=== PATIENT | female | born 1935 | race Caucasian/White ===

== ENCOUNTER 2019-02-05 23:23 | Inpatient (IN) | payer MEDICARE, BC ==
--- NOTE | 2019-02-06 | ED ---
Dizziness - HPI Summary HPI Summary: 83-year-old female presents with multiple falls today. She states that she is very dizzy starting this afternoon. She does not remember falling but fell at least 3 times today based on how her house looked. She only remembers hitting her life alert twice. ems came and brought patient to ER but patient was not cooperating well with ems per family as she was having difficulty following commands. She denies any pain currently. No chest pain or shortness of breath. Denies any headache. only admits to dizziness. States that she has history of vertigo. no abdomen. No nausea vomiting. No diarrhea. dizziness worse with head movements. denies any pre-syncope feeling. 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 ems stated that she seem to be grasping at things. she wears oxygen at home at night. when family arrived discussed that when they talked as usually to her via phone she states didn't feel well at 2:30pm. they state she is not acting like her self and she is moving around a lot more than usually. she lives alone and uses a walker to get around. - History Of Current Complaint Chief Complaint: EDFall Stated Complaint: "FALL" PER EMS Time Seen by Provider: 02/05/19 23:46 - Allergies/Home Medications Allergies/Adverse Reactions: Allergies Allergy/AdvReac Type Severity Reaction Status Date / Time ibuprofen Allergy Unknown Verified 02/05/19 23:40 Reaction Details Penicillins Allergy Unknown Verified 02/05/19 23:40 Reaction Details procaine [From Novocain] Allergy Unknown Verified 02/05/19 23:40 Reaction Details Home Medications: Home Medications Ferrous Sulfate TAB* 325 mg PO DAILY 02/06/19 [History Confirmed 02/06/19] Ipratropium 0.5MG/2.5ML NEB* [Atrovent 0.5 MG NEB.MICHAEL*] 0.5 mg INH Q6H PRN 02/06 [History Confirmed 02/06/19] Warfarin Sodium 1 tab PO EVERY OTHER DAY 02/06/19 [History Confirmed 02/06/19] Warfarin Sodium 2.5 mg PO EVERY OTHER DAY 02/06/19 [History Confirmed 02/06/19] raNITIdine HCl [Ranitidine HCl] 150 mg PO BEDTIME 02/06/19 [History Confirmed ] PMH/Surg Hx/FS Hx/Imm Hx Endocrine/Hematology History: Reports: Hx Anticoagulant Therapy Denies: Hx Diabetes Cardiovascular History: Reports: Hx Hypercholesterolemia Denies: Hx Hypertension Respiratory History: Denies: Hx Lung Cancer GI History: Reports: Hx Diverticulosis, Hx Gastroesophageal Reflux Disease, Other GI Disorders - Hx GERD History: Denies: Hx Renal Disease Musculoskeletal History: Reports: Hx Arthritis, Hx Back Problems Sensory History: Reports: Hx Contacts or Glasses - GLASSES Opthamlomology History: Reports: Hx Contacts or Glasses - GLASSES Psychiatric History: Reports: Hx Anxiety, Hx Depression - Surgical History Surgery Procedure, Year, and Place: HYSTERECTOMY 2006. TONSILECTOMY A CHILD Hx Anesthesia Reactions: No - Immunization History Date of Tetanus Vaccine: Unk Date of Influenza Vaccine: Fall 2013 Infectious Disease History: No Infectious Disease History: Denies: Traveled Outside the [place] in Last 30 Days - Social History Alcohol Use: None Substance Use Type: Reports: None Smoking Status (MU): Former Smoker Type: Cigarettes Review of Systems Negative: Fever Negative: Chest Pain Negative: Shortness Of Breath Neurological: Other - dizziness All Other Systems Reviewed And Are Negative: Yes Physical Exam Triage Information Reviewed: Yes Vital Signs On Initial Exam: Initial Vitals Temp Pulse Resp BP Pulse Ox 100.0 F 99 18 155/98 94 02/05/19 23:37 02/05/19 23:37 02/05/19 23:37 02/05/19 23:37 02/05/19 23:37 Vital Signs Reviewed: Yes Appearance: Positive: Well-Appearing Skin: Positive: Warm, Dry Head/Face: Positive: Normal Head/Face Inspection Eyes: Positive: Normal, EOMI, MERNA, Conjunctiva Clear ENT: Positive: Normal ENT inspection, Pharynx normal, TMs normal Respiratory/Lung Sounds: Positive: Clear to Auscultation, Breath Sounds Present Cardiovascular: Positive: Normal, RRR Abdomen Description: Positive: Nontender, Soft Bowel Sounds: Positive: Present Musculoskeletal: Positive: Strength/ROM Intact - arms and legs Neurological: Positive: Sensory/Motor Intact, Alert, Oriented to Person Place, Time, CN Intact II-III Psychiatric: Positive: Normal - [place] Coma Scale Best Eye Response: 4 - Spontaneous Best Motor Response: 6 - Obeys Commands Best Verbal Response: 5 - Oriented Coma Scale Total: 15 Diagnostics - Vital Signs Vital Signs Temp Pulse Resp BP Pulse Ox 05/17/19 23:37 100.0 F 99 18 155/98 94 - Laboratory Result Diagrams: 02/06/19 00:43 02/06/19 00:43 Lab Statement: Any lab studies that have been ordered have been reviewed, and results considered in the medical decision making process. - Radiology chest Radiology Interpretation Completed By: ED Physician Summary of Radiographic Findings: possible lingual pneumonia - CT brain CT Interpretation Completed By: Radiologist Summary of CT Findings: IMPRESSION: Limited examination due to motion and streak artifact. No large intracranial hemorrhage or large vessel territorial infarct. - EKG No standard instances Cardiac Rate: NL EKG Rhythm: Sinus Rhythm EKG Comparison: No Significant Change Summary of EKG Findings: sinus rhythm Re-Evaluation - Re-Evaluation First Eval Re-Evaluation Time: 01:04 Comment: family now present and last normal was 2:30pm. family states is not normal for here to move so much and see seems to be grabing at things. has history of vertigo. Second Eval Re-Evaluation Time: 01:28 Comment: no chest pain still, troponin 2.0. only complianing of dizziness. Third Eval Re-Evaluation Time: 01:55 Comment: attempted to use the commode and required two people to assist her as unable to ambulate on her own which is unlike her Dizzy Course/Dx - Course Course Of Treatment: 83-year-old female presents with multiple falls today. She states that she is very dizzy starting this afternoon. She does not remember falling. She only remembers hitting her life alert twice. denies any pain currently. No chest pain or shortness of breath. Denies any headache. States that she has history of vertigo and feels the same. on exam has normal neuro exam just has to be reorientated frequently and is slow to do tasks on intially exam. is moving all extremities and continues to move head side to side. lungs CTA. heart RRR. abd soft nontender. 13.8 wbc. lactic elevated at 2.5. CT brain normal. discussed with dr alegria about troponin (2.0) and he said to give aspirin and ekg looks similiar to last time. chest xray possible pneumonia as read by dr alegria and urine possible uti as has +1 bacteria so will cover with rocephin. discussed with dr ibarra who agrees to admit. - Diagnoses Differential Diagnosis/HQI/PQRI: Coronary Artery Disease, Metabolic Abnormality , Myocardial Infarction Provider Diagnoses: Dizziness, Altered mental status, Elevated troponin, Frequent falls Discharge - Sign-Out/Discharge Documenting (check all that apply): Patient Departure - Discharge Plan Condition: Stable Disposition: ADMITTED TO [facility] Referrals: Tavares Duffy DO [Primary Care Provider] - - Billing Disposition and Condition Condition: STABLE Disposition: Admitted to [facility]
[2019-02-06] MEDS ORDERED: NS 0.9% 1000 ML** 1,000 ML IV ONE (00:49)
[2019-02-06] MEDS ORDERED: Meclizine TAB* 12.5 MG PO ONE (00:49)
[2019-02-06 01:04] LABS: ABS Basophils 0.1 10^3/ul (0-0.2); ABS Monocytes 0.3 10^3/ul (0-0.8); ABS Neutrophils 12.3 10^3/ul (1.5-7.7); Eosinophil % 0.1 %; Hematocrit 45 % (35-47); Hemoglobin 14.6 g/dL (12.0-16.0); Lymphocyte % 6.9 %; Mean Corpuscular HGB Conc 33 g/dL (31-36); Mean Corpuscular Hemoglobin 28 pg (27-31); Mean Corpuscular Volume 86 fL (80-97); Mean Platelet Volume 9.2 fL (7.4-10.4); Platelet Count 223 10^3/uL (150-450); Red Blood Count 5.17 10^6 /uL (3.70-4.87); Red Cell Distribution Width 14 % (10.5-15); White Blood Count 13.8 10^3/uL (3.5-10.8)
[2019-02-06 01:24] LABS: ALT 17 U/L (7-52); AST 25 U/L (13-39); Albumin 4.2 g/dL (3.2-5.2); Albumin/Globulin Ratio 1.4 (1-3); Alkaline Phosphatase 93 U/L (34-104); Anion Gap 8 mmol/L (2-11); BUN/Creatinine Ratio 17.2 (8-20); Blood Urea Nitrogen 17 mg/dL (6-24); C Reactive Protein 15.03 mg/L (<8.01); CO2 Carbon Dioxide 28 mmol/L (22-32); Calcium 9.3 mg/dL (8.6-10.3); Chloride 99 mmol/L (101-111); EGFR African American 64.8 (>60); EGFR Non-African American 53.6 (>60); Glucose 161 mg/dL (70-100); Magnesium 1.9 mg/dL (1.9-2.7); Potassium 4.5 mmol/L (3.5-5.0); Sodium 135 mmol/L (135-145); Total Protein 7.2 g/dL (6.4-8.9)
[2019-02-06 01:34] LABS: INR 1.88 (0.82-1.09)
[2019-02-06 01:57] LABS: TSH (Thyroid Stimulating Horm) 1.34 mcIU/mL (0.34-5.60)
[2019-02-06] MEDS ORDERED: Aspirin EC TAB* 325 MG PO ONE (02:05)
[2019-02-06 02:15] LABS: Urine Appearance Clear; Urine Bacteria 1+ (Absent); Urine Bilirubin Negative (Negative); Urine Blood 2+ (Negative); Urine Color Straw; Urine Glucose 3+(>=500 mg/dL) (Negative); Urine Ketones Trace (Negative); Urine Nitrite Negative (Negative); Urine Protein Negative (Negative); Urine Red Blood Cell 2+(6-10/hpf) (Absent); Urine Urobilinogen Negative (Negative); Urine White Blood Cell Trace(0-5/hpf) (Absent)
[2019-02-06] MEDS ORDERED: cefTRIAXone(*) 1 GM in NS 0.9% 50 ML* 50 ML IVPB ONE (02:25)
[2019-02-06 02:49] LABS: Creatine Kinase 441 U/L (10-223)
[2019-02-06] MEDS ORDERED: Magnesium Hydroxide LIQ* 30 ML UDC PO PRN (03:43)
[2019-02-06] MEDS ORDERED: Al Hydrox/Mg Hydrox/Simet LIQ* 30 ML UDC PO PRN (03:43)
[2019-02-06] MEDS ORDERED: Acetaminophen TAB* 325 MG PO PRN (03:43)
[2019-02-06] MEDS ORDERED: Ipratropium 0.5MG/2.5ML NEB* 0.5 MG/2.5 ML NEB.SOLN INH PRN (03:46)
[2019-02-06] MEDS ORDERED: NS 0.9% IV ONE (04:00)
[2019-02-06 04:50] LABS: INR 1.79 (0.82-1.09)
[2019-02-06] MEDS: NS 0.9% 1000 ML** 1,000 ML IV SCH (05:07)
[2019-02-06 05:19] LABS: Troponin I 5.04 ng/mL (<0.04)
[2019-02-06 06:18] LABS: Troponin I 3.79 ng/mL (<0.04)
--- NOTE | 2019-02-06 07:58 | HP ---
CC: Dr. Tavares Duffy * HISTORY AND PHYSICAL: DATE OF ADMISSION: 02/06/19 PRIMARY CARE PROVIDER: Dr. Tavares Duffy. CHIEF COMPLAINT: Status post fall with abnormal behavior. HISTORY OF PRESENT ILLNESS: Yue Nixon is an 83-year-old female who lives independently in her own house. She drives only in the [place] now. Her family lives nearby and helps her out. The patient basically ambulates with a roller walker and every Friday, she goes with her family out to dinner. She called her son, Anish, today and told him that she was not feeling like going to dinner due to feeling unwell. The patient herself stated that she felt somewhat dizzy and weak. Subsequently, her personal alert button was pushed and the patient's family was notified that emergency response was activated. The patient's son stated that was first in the patient's apartment. Apparently, the apartment was in disarray. The family thinks that the patent was found on the floor. There were things scattered all over the kitchen and the living room. The patient herself stated that she is not really sure why and how she fell. She complains of no pain right now. She does have an abrasion and swelling of the right forehead. Although the patient is alert and oriented x3, there is some delay in her responses sometimes during my evaluation. The patient also continues to have a head turning motion from one side to the other during the evaluation, which continues to be there even when the patient is lying on her side and appears to be asleep when I entered the room. The patient's troponin was noted to be 2 at admission, but the patient denies any chest pain or shortness of breath. She does use oxygen at night ever since her pulmonary emboli were diagnosed in 2013. The patient is going to be admitted with diagnosis of status post fall and altered mental status. PAST MEDICAL HISTORY: 1. History of DVT and PE diagnosed in 2013. Ever since then, the patient has had nocturnal hypoxemia and needed oxygen at night. 2. Gastroesophageal reflux disease. 3. Depression. 4. Osteoporosis. 5. Dyslipidemia. 6. Overactive bladder. 7. History of chronic back pain. 8. Status post hysterectomy in the past. 9. Cardiac catheterization in 2013 showed basically normal coronaries. ALLERGIES: Include IBUPROFEN, PENICILLIN, and NOVOCAINE. The details of the patient's allergy reaction the patient cannot describe at this point. MEDICATIONS: At home include: 1. Ferrous sulfate 325 mg daily. 2. Atrovent nebulizer on a p.r.n. basis. 3. Ranitidine 150 mg at bedtime. 4. Coumadin 5 mg alternating with 2.5 mg every other day. 5. Fluoxetine 20 mg daily. 6. Boniva once monthly. 7. Ditropan 5 mg daily. 8. Prevacid SoluTab 30 mg daily. FAMILY HISTORY: Positive for heart disease in mother and father. SOCIAL HISTORY: The patient has a history of smoking and she quit over 25 years ago. She has a history of 80 pack-year smoking. She denies any alcohol or drug use. She lives by herself and her surrogate decision maker is her son, Zak. She is a full code. REVIEW OF SYSTEMS: Please note that although the patient responds to questions appropriately, she is somewhat altered and continues to have repetitive head movements from left to right. She denies any pain. She stated that she does not remember what happened when she fell. She denies any focal weakness. She denies any chest pain or shortness of breath. When asked what made her call her family and state that she was feeling unwell, she stated that she felt a little dizzy. All the remaining 12 systems were reviewed with the patient and are somewhat limited, but are negative as mentioned above. PHYSICAL EXAMINATION GENERAL: The patient is a pleasant 83-year-old female who is in no acute distress. The patient continues to move her head from left to right when talking with me, but otherwise she is alert and oriented x3. Sometimes it appears that her response is slightly delayed. VITAL SIGNS: Blood pressure 125/61, heart rate of 82 and regular, respiratory rate 27, oxygen saturation 97% on room air, temperature of 100.0. HEENT: Head: With an abrasion and swelling of the right forehead. No other abnormalities noted. Eyes: Pupils are equal and reactive to light and accommodation. Oropharynx clear. Mucosa moist. NECK: Supple. No JVD. No bruits bilaterally. RESPIRATORY: Clear to auscultation bilaterally. CARDIOVASCULAR: Regular rate and rhythm, no murmur. ABDOMEN: Soft and nontender. Bowel sounds present in all 4 quadrants. There is no CVA tenderness on palpation of the back. EXTREMITIES: There is no edema. Pulses are +2 bilaterally. No clubbing or cyanosis. NEUROLOGIC: On neuro evaluation, speech is clear. Cranial nerves II through XII grossly intact. Motor strength is 5/5 bilaterally. PSYCHIATRIC: On psychiatric evaluation, the patient is oriented x3. Occasionally has some delay in answers. She continues to move her head from left to right. She is not aware of doing it, but it does not appear to bother her at all. SKIN: On evaluation of the skin, apart from a small abrasion with ecchymosis on her right forehead, no other abnormalities noted. DIAGNOSTIC STUDIES/LAB DATA: Laboratory data showed white blood cell count of 13.8, hemoglobin of 14.6, hematocrit of 45, and platelets of 223. INR was subtherapeutic at 1.88. Sodium was 135, potassium 3.5, chloride 99, carbon dioxide 28, BUN 17, creatinine 0.99. Liver function tests were unremarkable. C-reactive protein of 15. Brain natriuretic peptide was 182. TSH was 1.34. Troponin of 2. Total CPK was 441, lactic acid was 2.5. The patient's chest x-ray reviewed by myself shows no clear-cut pneumonia or abnormality in cardiac silhouette. The patient's EKG showed left anterior hemiblock with ST depressions in leads V2 and V3. Comparing with an EKG from 2014, the patient had negative T waves in V2 and V3, which currently it had normalized. Yuniel CT impression: "Limited examination due to motion artifact. No large intracranial hemorrhage or large-vessel territorial infarcts." ASSESSMENT AND PLAN: An 83-year-old female who is on Coumadin for history of pulmonary embolism has fallen and hit her head, now keeps on repetitively moving her head from left to right, has somewhat delayed responses, although she is oriented x3. The patient does not really remember what happened. She has mild leukocytosis and elevated lactic acid level as well as troponin and CPK. At this point, the differential in regards to her altered mentation is: 1. Concussion. It could also be related to a partial seizure, although less likely. Due to the patient's leukocytosis and low-grade fever, it is possible that she has an ongoing infection. At this point, I recommended for the patient to undergo an MRI and lumbar puncture. The patient refused an MRI and she refused a lumbar puncture. As per discussion with the patient's son present in the room, the patient is very claustrophobic and she refuses to have the "needles in her spine." At this point, the patient is going to be placed on telemetry monitored bed with neuro checks every 2 hours. I will continue her Coumadin tonight, but for the time being, I will not bridge her to make her INR therapeutic due to the fact that this patient had significantly fallen and hit her head and we will continue to watch with neuro checks for possibility of an occult blood that was not diagnosed on the CT of the brain. I will have low threshold to have a repeat CT of the brain obtained if her mentation or neurologic exam changes. I will also obtain an EEG and ask neurology to consult the patient. 2. In regards to the patent's elevated troponin, the patient is asymptomatic from a cardiac standpoint. Her EKG is slightly changed, but her last EKG was 5 years ago. Her cardiac catheterization in 2013 demonstrated no significant coronary artery disease. At this point, due to her neurologic status, I will not add on aspirin at this point. I will continue telemetry monitored bed and we will obtain transthoracic echocardiogram. Once again, the patient complains of low chest pain. Aspirin is not going to be added for fear of occult bleeds, for which we are watching with neuro checks. 3. In regards to the patient's sepsis, the patient is septic at admission with elevated lactic acid and the followup lactic acid is going to be obtained at 6: 00 a.m. At this point, the patient will receive 1000 mL of intravenous fluids in the emergency department and I am going to add on another 1800 mL of IV fluids to complete the patient's bolus for sepsis. The patient is going to be treated empirically with ceftriaxone and the source of infection is likely urine since the patient's urinalysis is abnormal. A central nervous system infection is also a possibility, although the patient has no meningeal signs at this point and I do not believe covering her fully for meningitis is needed. 4. The patient has history of pulmonary embolism or DVT. The patient is currently on 2 L of oxygen. She is not dyspneic and she has not been complaining of shortness of breath. Her INR is slightly subtherapeutic at 1.8 and I am not going to bridge the patient due to her significant head trauma. 5. The patient's code status is full. Her surrogate decision maker is her son. 6. For her DVT prophylaxis, the patient is going to be continued on her Coumadin with daily INRs. SCDs are going to be also started. TIME SPENT: Approximately 75 minutes were spent on admission of this patient; more than half that time was spent [id number] with the patient during the interview and physical exam. [id number]/[facility] #: [id number] MTDD
--- NOTE | 2019-02-06 09:45 | PN ---
Sepsis Event Evaluation Date of Evaluation: 02/06/19 Time of Evaluation: 09:15 Current Stage of Sepsis: Sepsis Vital Signs - Last 12 Hours: Vital Signs - 12 hr Temp Pulse Resp BP Pulse Ox 02/06/19 05:29 98.8 F 86 10 136/77 96 02/06/19 05:05 100 F 85 18 150/66 98 02/06/19 04:03 86 9 136/77 96 02/06/19 04:00 82 96 02/06/19 03:33 83 27 125/61 97 02/06/19 03:03 86 18 136/74 96 02/06/19 03:00 21 02/06/19 02:32 85 31 143/75 96 02/06/19 02:16 85 16 142/110 96 02/06/19 02:03 87 21 142/110 97 02/06/19 02:00 88 24 97 02/06/19 01:33 23 156/86 02/06/19 01:29 16 02/06/19 01:03 162/90 02/06/19 00:32 90 166/87 98 02/06/19 00:20 99 94 02/05/19 23:37 100.0 F 99 18 155/98 94 02/05/19 23:33 102 155/98 92 02/05/19 23:32 98 94 Lactic Acid: 02/06/19 02/06/19 00:43 04:33 Lactic Acid 2.5 H* 1.6 - Cardiopulmonary Exam Capillary Refill: < or = to 5 seconds Respiratory: Symmetrical Chest Expansion and Respiratory Effort, Clear to Auscultation Cardiovascular: NL Sounds; No Murmurs; No JVD, No Edema - Peripheral Pulse Exam Pedal Pulses: Bilateral Normal Posterior Tibial Pulse: Bilateral Normal - Skin Exam Skin Exam: Normal Turgor - [place] Coma Scale Best Eye Response: 4 - Spontaneous Best Motor Response: 6 - Obeys Commands Best Verbal Response: 5 - Oriented Coma Scale Total: 15 Assess/Plan/Problems-Billing Assessment:
[2019-02-06] MEDS: Ferrous Sulfate TAB* 325 MG PO SCH (10:13)
[2019-02-06] MEDS: Docusate CAP* 100 MG PO SCH ×3 (10:13→20:32)
[2019-02-06] MEDS: Pantoprazole TAB * 40 MG TAB PO SCH (10:13)
[2019-02-06] MEDS: Oxybutynin XL TAB* 5 MG PO SCH (10:13)
[2019-02-06] MEDS: FLUoxetine CAP* 20 MG PO SCH (10:13)
--- NOTE | 2019-02-06 12:27 | CONSULT ---
Subjective Date of Service: 02/06/19 Interval History: Admission Date: 02/06/19 Date of consult: 02/06/2019 Provider: Hospitalist PMD: Dr. Tavares Duffy CHIEF COMPLAINT: Fall Reason for consult: Abnormal troponin level HISTORY OF PRESENT ILLNESS: Yue Nixon is an 83-year-old woman with a history as below. She lives alone and uses a rolling walker. She was feeling fine yesterday morning She took a nap. She woke up and felt dizziness, GI upset, and vomiting She denies any CP, dyspnea or palpitations. She was found on the floor. She is unsure about LOC She was noted to have altered mental status She does have a bruise on her forehead. She feels fine now except headache and tiredness. PAST MEDICAL HISTORY: 1. History of DVT and PE diagnosed in 2013. Ever since then, the patient has had nocturnal hypoxemia and needed oxygen at night. 2. Gastroesophageal reflux disease. 3. Depression. 4. Osteoporosis. 5. Dyslipidemia. 6. Overactive bladder. 7. History of chronic back pain. 8. Status post hysterectomy in the past. ALLERGIES: Include IBUPROFEN, PENICILLIN, and NOVOCAINE. The details of the patient's allergy reaction the patient cannot describe at this point. FAMILY HISTORY: Positive for heart disease in mother and father. SOCIAL HISTORY: The patient has a history of smoking and she quit over 25 years ago. She has a history of 80 pack-year smoking. She denies any alcohol or drug use. She lives by herself and her surrogate decision maker is her son, Zak. She is a full code. Medications Active Medications: Acetaminophen (Tylenol Tab*) 650 mg PO Q4H PRN PRN Reason: FEVER/PAIN Last Admin: 02/06/19 05:19 Dose: 650 mg Al Hydrox/Mg Hydrox/Simethicone (Maalox Plus*) 30 ml PO Q6H PRN PRN Reason: INDIGESTION Docusate Sodium (Colace Cap*) 100 mg PO BID [facility] Last Admin: 02/06/19 10:13 Dose: 100 mg Ferrous Sulfate (Ferrous Sulfate Tab*) 325 mg PO DAILY [facility] Last Admin: 02/06/19 10:13 Dose: 325 mg Fluoxetine HCl (Prozac Cap*) 20 mg PO DAILY [facility] Last Admin: 02/06/19 10:13 Dose: 20 mg Sodium Chloride (Ns 0.9% 1000 Ml) 1,000 mls @ 75 mls/hr IV PER RATE [facility] Last Admin: 02/06/19 05:07 Dose: 75 mls/hr Ceftriaxone Sodium 1 gm/ (Sodium Chloride) 50 mls @ 200 mls/hr IVPB Q24H [facility] Ipratropium [place] (Atrovent 0.5 Mg Neb.Michael*) 0.5 mg INH Q6H PRN PRN Reason: SOB/WHEEZING Magnesium Hydroxide (Milk Of Magnesia Liq*) 30 ml PO Q4H PRN PRN Reason: CONSTIPATION Oxybutynin Chloride (Ditropan Xl Tab*) 5 mg PO DAILY [facility] Last Admin: 02/06/19 10:13 Dose: 5 mg Pantoprazole Sodium (Protonix Tab*) 40 mg PO DAILY [facility] Last Admin: 02/06/19 10:13 Dose: 40 mg Home Medications: FLUoxetine CAP* [Prozac CAP*] 20 mg PO DAILY 04/15/14 [History Confirmed ] Ibandronate Sodium* [Boniva*] 1 syr .ROUTE SEE INSTRUCTIONS 04/15/14 [History Confirmed 02/06/19] Lansoprazole SOLUTAB* [Prevacid Solutab*] 30 mg PO DAILY 04/15/14 [History Confirmed 02/06/19] Oxybutynin TAB* [Ditropan TAB*] 5 mg PO MONTHLY 04/15/14 [History Confirmed ] Ferrous Sulfate TAB* 325 mg PO DAILY 02/06/19 [History Confirmed 02/06/19] Ipratropium 0.5MG/2.5ML NEB* [Atrovent 0.5 MG NEB.MICHAEL*] 0.5 mg INH Q6H PRN 02/06 [History Confirmed 02/06/19] Warfarin Sodium 1 tab PO EVERY OTHER DAY 02/06/19 [History Confirmed 02/06/19] Warfarin Sodium 2.5 mg PO EVERY OTHER DAY 02/06/19 [History Confirmed 02/06/19] raNITIdine HCl [Ranitidine HCl] 150 mg PO BEDTIME 02/06/19 [History Confirmed ] Review of Systems - Measurements Intake and Output: Intake and Output Last 24 Hours 02/04/19 02/05/19 02/06/19 02/07/19 06:59 06:59 06:59 06:59 Intake Total 1065 Balance 1065 Weight 220 lb 1.6 oz Intake: IV Fluids 1065 NS (0.9%) 65 Oral 0 - Review of Systems Constitutional Symptoms: Positive: Weakness, Unexplained Falls Negative: Weight Gain, Weight Loss, Night Sweats Dermatology: Negative: Rash, Skin Lesions HEENT: Negative: Change in Hearing, Vertigo Eyes: Negative: Change in Vision, Double Vision Thyroid: Negative: Weight Loss, Weight Gain Pulmonary: Negative: Cough, Sputum, Hemoptysis Cardiology: Negative: Chest Pain, Shortness of Breath, Palpitations, Swelling of Ankles, Peripheral Vascular Dis, Edema, Claudication, Paroxysmal Nocturnal Dyspnea, Orthopnea Gastroenterology: Negative: Abdominal Pain, Nausea, Vomiting, Anorexia, Change in Bowel Habits , Haematemesis, Melena Genital - Urinary: Negative: Dysuria, Hematuria, Polyuria, Nocturia Musculoskeletal: Negative: Joint Pain, Joint Stiffness Endocrinology: Positive: Obesity Negative: Thyroid Problems, Hyperglycemia, Hypoglycemia, Polydipsia, Polyuria Hematologic/Lymphatic: Positive: Use of Anticoagulant Negative: Use of Antiplatelet Drugs Neurology: Negative: Headaches, Migraines, Change in Vision, Hx of Stroke\TIA, Hx Seizures Psychiatry: Negative: Unusual Anxiety, Suicidal Ideation Allergic/Immunologic: Negative: Hx HIV, Immunocompromise Review of Systems Statement: All other review of systems negative, unless stated above. Objective Vital Signs: Temp Pulse Resp BP Pulse Ox 98.6 F 77 16 145/67 97 02/06/19 07:34 02/06/19 11:39 02/06/19 07:34 02/06/19 11:51 02/06/19 07:34 Oxygen Devices in Use Now: None Appearance: nad, pleasant, head tremor Ears/Nose/Mouth/Throat: NL Teeth, Lips, Gums Neck: NL Appearance and Movements; NL JVP Respiratory: Symmetrical Chest Expansion and Respiratory Effort, Clear to Auscultation Cardiovascular: NL Sounds; No Murmurs; No JVD, RRR, No Edema Abdominal: - - soft, obese Extremities: No Edema Skin: No Rash or Ulcers Neurological: Alert and Oriented x 3 Laboratory Results: 02/06/19 00:43 02/06/19 00:43 INR (Anticoag Therapy) 1.79 (0.82-1.09) H 02/06/19 04:33 Total Bilirubin 0.60 mg/dL (0.2-1.0) 02/06/19 00:43 AST 25 U/L (13-39) 02/06/19 00:43 ALT 17 U/L (7-52) 02/06/19 00:43 Alkaline Phosphatase 93 U/L (34-104) 02/06/19 00:43 B-Natriuretic Peptide 182 pg/mL (<=100) H 02/06/19 00:43 Total Protein 7.2 g/dL (6.4-8.9) 02/06/19 00:43 Albumin 4.2 g/dL (3.2-5.2) 02/06/19 00:43 Globulin 3.0 g/dL (2-4) 02/06/19 00:43 Albumin/Globulin Ratio 1.4 (1-3) 02/06/19 00:43 TSH 1.34 mcIU/mL (0.34-5.60) 02/06/19 00:43 02/06/19 02/06/19 02/06/19 00:43 04:33 05:17 Troponin I 2.00 H* 5.04 H* 3.79 H* Diagnostic Imaging: Cardiac Catheterization Report Provider: Tita Lancaster MD CARDIAC CATHETERIZATION: DATE OF PROCEDURE: 04/15/14 right femoral access site. INDICATION: This patient arrived at our hospital with what appeared to be unstable angina (class IV). She has also displayed significant T-wave abnormalities compared to another electrocardiogram taken this morning at another hospital. HEMODYNAMICS: Central aortic pressure was 135/60 mmHg, left ventricular systolic pressure at 135 mmHg, left ventricular end-diastolic pressure was 10 mmHg. There is no gradient across the aortic valve. CORONARY ANATOMY: Codominant system. LEFT MAIN SEGMENT: It is a long left main and is of large caliber with no visible obstructive disease. LEFT ANTERIOR DESCENDING ARTERY: It is a large caliber vessel with no significant obstructive disease. CIRCUMFLEX ARTERY: A large caliber vessel with no significant obstructive disease. RIGHT CORONARY ARTERY: A large caliber vessel with no visible obstructive disease. LEFT VENTRICULAR ANGIOGRAPHY: Left ventricle appears at its upper limits of normal. No WMA The visual estimated ejection fraction is approximately 70% . There was no mitral regurgitation. IMPRESSION: No visible obstructive disease noted in the coronary arterial tree. Normal left ventricular systolic function. Normal left ventricular filling pressures. Consider Other etiologies for dyspnea such as PE Exam Date: 04/16/14 cta chest Indication: Chest pain. Evaluate for pulmonary embolus. There is bilateral, third order and distal, acute pulmonary emboli involving the upper lower lungs bilaterally. IMPRESSION: BILATERAL PULMONARY EMBOLI. Exam Date: 04/16/14 VL LOWER EXT VEINS BILATERAL IMPRESSION: RIGHT POSTERIOR TIBIAL VEIN DEEP VENOUS THROMBOSIS. Exam Date: 02/05/19 CT Head Without Contrast IMPRESSION: Limited examination due to motion and streak artifact. No large intracranial hemorrhage or large vessel territorial infarct. Exam Date: 02/06/19 0110 CHEST AP OR PORT IMPRESSION: QUESTION OF INFILTRATE IN THE LEFT LUNG BASE. FOLLOW-UP EXAM IS SUGGESTED. EKG Data: ekg 03/2014: NSR, iRBBB, diffuse ischemic twi ekg x 2 this admission unchanged: NSR, LAE, incomplete rbbb, non-specific st depression Assessment/Plan 1. Elevated troponin level 2. Confusion, weakness, fall vs. LOC 3. History of DVT/PE - On alf warfarin therapy 2. Obesity - ? stress cardiomyopathy, ? seizure, ? arrhythmia - history does not seem consistent with type 1 SC - echo tomorrow, continue telemetry Thank you for allowing me to participate in the cardiovascular care of this patient. Please do not hesitate to contact me with questions or concerns.
--- NOTE | 2019-02-06 13:31 | CONS ---
CC: Dr. Tavares Duffy CONSULTATION REPORT: DATE OF CONSULT: 02/06/19 REQUESTING PHYSICIAN: Dr. Lynn Chaparro. REASON FOR CONSULT: Abnormal head movements. HISTORY OF PRESENT ILLNESS: Yue Nixon is an 83-year-old woman with history of DVT and PE who was admitted after a fall on Coumadin with a history of not feeling well, dizziness, nausea, vomiting, slightly elevated white blood cell count, low- grade fever, and elevated troponins. On admission, she was noted to have a No-No lateral tremor. The tremor was noted of her neck. There was no loss of consciousness or loss of awareness while this was going on. She could not stop it. On today's visit, she indicates that she has had this tremor for years that she often will experience with fatigue and when she is going to bed. Ms. Nixon usually goes to dinner with her son every Friday. She cancelled dinner because she felt dizzy and week. She ended up calling a medical alert as she continued to feel worse. She had nausea and eventually vomited. She described "vertigo." When asked what this meant to her, she told me there was no spinning , there was no lightheadedness; it was just "dizzy." She has had dizziness intermittently for years which she usually sits on a recliner and lets it pass. She tells me that last evening when she had not felt well, she took a nap but when she woke up she was nauseated and vomiting. She does remember falling and things breaking on her way down. She called the alert to get help. Ms. Nixon does live alone at home. Her son lives in [facility] and calls her twice a day and has dinner with her on Fridays. She sleeps on her couch or recliner as her bedroom does not have heat in the winter and she has gotten into this habit. She adds that she does not like to be alone. PAST MEDICAL HISTORY: Includes: 1. DVT and PE in 2013. 2. GERD. 3. Dyslipidemia. 4. Depression in the setting of her dying in 2010 and her son being murdered. 5. Osteoporosis. 6. Overactive bladder. 7. Chronic back pain. 8. A broken left foot in 2011. 9. History of hysterectomy. 10. History of cardiac catheterization in 2013 with report of normal vessels. 11. History of bilateral cataract repair. CURRENT MEDICATIONS: Include: 1. Acetaminophen 650 mg p.o. q.4 hours p.r.n. fever or pain. 2. Maalox 30 mL p.o. q.6 hours p.r.n. indigestion. 3. Ceftriaxone 1 g IV q.24 hours. 4. Colace 100 mg p.o. b.i.d. 5. Ferrous sulfate 325 mg p.o. daily. 6. Prozac 20 mg p.o. daily. 7. Atrovent 0.5 mg inhaled q.6 hours p.r.n. shortness of breath or wheezing. 8. Mag oxide 30 mL p.o. q.4 hours p.r.n. constipation. 9. Oxybutynin 5 mg p.o. daily. 10. Protonix 40 mg p.o. daily. 11. Sodium chloride 75 mL an hour IV. At home she is also noted to be on warfarin at baseline 1 mg every other day alternating with 2.5 mg every other day. She uses oxygen when she is on her exercise bike and at nighttime. ALLERGIES: Include IBUPROFEN which she does not take in the setting of Coumadin. PENICILLIN which caused "bumps" and NOVOCAINE which caused hives. SOCIAL HISTORY: She lives alone, stopped smoking 25 years ago. Does not drink alcohol. Her son is her decision maker. REVIEW OF SYSTEMS: She did note that she hesitated before she spoke yesterday or she was trying to think of what answer she wanted to give. She still thinks she might be doing that a little bit today. There has been no new change in vision, now new numbness or weakness of her arms or legs. She has had left 5th digit numbness for a few years. Her bladder has been overactive going every 2 hours for years. There has been no change in bowel movements. She denies any chest pain, chest pressure, palpitations, shortness of breath; other than shortness of breath when she is on her exercise bike. She has had psychiatric history as mentioned above. Orthopedic history as mentioned above. [employer] history as mentioned above. PHYSICAL EXAM: On examination, her most recent blood pressure was 136/77, her temperature was 98.8 degrees Fahrenheit, pulse was 86, respiratory rate 10, saturation was 96%. She had a regular cardiac rhythm. Her lungs were clear to auscultation. There was no carotid bruits. She had a slight peripheral edema. Her peripheral pulses were intact in her feet. She was aware of location, date , time. She had full extraocular movements with no nystagmus. Full villareal to confrontation. Her facial expression, sensation, hearing were equal. Palate was upgoing. Tongue was midline. Sternocleidomastoid and trapezius were 5/5 in strength. There was normal bulk and tone. No pronator drift. Full strength in the upper and lower extremities with normal yikjpm-lw-cave and heel- to-knutson movements. No tremor was noted in her neck and no dystonia was noted. She had equal sensation of pinprick, cold, and light touch; although there was decreased cold sensation distally. Her reflexes were 1+ in the upper extremities, hard to obtain in the lower extremities. Toes were flexor response. Vibration sensation was variable in the lower extremities, normal at the DIP of the upper extremities. She transferred and got up to go to the commode with minimal help and had to go to the bathroom twice during the examination. DIAGNOSTIC STUDIES/LAB DATA: CBC with initial white count of 13.8, her absolute neutrophils were 12.3. Her INR initially was 1.88, today 1.79. Her metabolic panel showed a creatinine that was slightly high at 0.99, her glucose was 161. Lactate was 2.5, now back to normal at 1.6. Her total creatine kinase on admission was 441. Troponin was initially elevated at 2, peaked at 5.04, and then came down to 3.79. Her C-reactive protein was elevated at 15.03 and BNP was 182. TSH was 1.34. Urinalysis did show trace ketones, 2+ blood, 2+ red blood cells, trace white blood cells. No esterase or nitrite. Glucose was 3+. CT of the brain was reviewed. There were some movement artifact. There was no clear hemorrhage. I question if there was some old right hypodensity in the right frontal region. Her EKG showed sinus rhythm. IMPRESSION: An 83-year-old woman admitted with a fall, with not feeling well, "dizziness" that could not be clarified, nausea and vomiting with elevated white count, low-grade fever, and elevated troponins. Neurology was consulted because of head movement which has now gone away. A history was obtained that she has been having this intermittently for years particularly when she is tired and going to bed. No tremor was noted at this point. Given lack of other history to suggest seizure at this point, I have discontinued the EEG. We will observe. If she has repeat events, then consider further workup. At this point, it appears that she was stressed in the setting of having chronic intermittent tremor with fatigue. She is undergoing workup for her elevated white count, low-grade fever, elevated troponins. I will defer to the hospitalist team. It is noted that she is off her Coumadin, and I would suggest this be restarted. TIME SPENT: Over 90 minutes was spent in direct patient care, all questions were answered. [id number]/[facility] #: [id number] RUFINO
[2019-02-06] MEDS ORDERED: Warfarin TAB(*) 5 MG PO SCH ×2 (17:00)
--- NOTE | 2019-02-06 18:27 | PN ---
Hospitalist Progress Note Date of Service: 02/06/19 Pt seen and examined. Troponin peaked at 5.0, never chest pain but she does not remember the events of her fall vs syncope at all. ECHO ordered. Very tired, nearly nodding off to sleep on evaluation ~830. EEG canceled by Neurology. PT. CFTX f/u UCx for potential UTI. Lactic Acidosis resolved. Had refused MRI and LP on admission. Nontoxic appearing, no neck stiffness.
[2019-02-07] MEDS: NS 0.9% 1000 ML** 1,000 ML IV SCH (00:07)
[2019-02-07] MEDS: cefTRIAXone(*) 1 GM in NS 0.9% 50 ML* 50 ML IVPB SCH (05:01)
[2019-02-07 06:30] LABS: ABS Basophils 0.1 10^3/ul (0-0.2); ABS Eosinophils 0.2 10^3/ul (0-0.6); ABS Lymphocytes 1.8 10^3/ul (1.0-4.8); ABS Monocytes 0.7 10^3/ul (0-0.8); ABS Neutrophils 6.8 10^3/ul (1.5-7.7); Eosinophil % 1.7 %; Hematocrit 40 % (35-47); Hemoglobin 13.2 g/dL (12.0-16.0); Lymphocyte % 18.6 %; Mean Corpuscular HGB Conc 33 g/dL (31-36); Mean Corpuscular Hemoglobin 29 pg (27-31); Mean Corpuscular Volume 87 fL (80-97); Mean Platelet Volume 8.9 fL (7.4-10.4); Platelet Count 193 10^3/uL (150-450); Red Blood Count 4.63 10^6 /uL (3.70-4.87); Red Cell Distribution Width 14 % (10.5-15); White Blood Count 9.6 10^3/uL (3.5-10.8)
[2019-02-07 06:43] LABS: INR 1.63 (0.82-1.09)
[2019-02-07 06:51] LABS: BUN/Creatinine Ratio 12.2 (8-20); EGFR African American 72.4 (>60); EGFR Non-African American 59.8 (>60); Potassium 3.8 mmol/L (3.5-5.0)
[2019-02-07] MEDS: Pantoprazole TAB * 40 MG TAB PO SCH ×2 (06:58→08:55)
[2019-02-07] MEDS: Oxybutynin XL TAB* 5 MG PO SCH (08:52)
[2019-02-07] MEDS: Ferrous Sulfate TAB* 325 MG PO SCH (08:52)
[2019-02-07] MEDS: Docusate CAP* 100 MG PO SCH ×2 (08:52→20:53)
[2019-02-07] MEDS: FLUoxetine CAP* 20 MG PO SCH (08:52)
[2019-02-07] MEDS ORDERED: Perflutren Lipid Microsphere* 3 ML VIAL ONE (09:46)
--- NOTE | 2019-02-07 14:05 | PN ---
Subjective Date of Service: 02/07/19 Interval History: No acute events overnight. Afebrile, hemodynamically stable. Tele NSR in 70s. Pt slept a lot yesterday and then most of the night. Feeling refreshed and wanting to go home. Denies chest pain, SOB, abdominal pain, F/C/N/V. Slight head aching above right eye brow where she has small ecchymosis. ECHO today with EF 55-60%, hypokinesis of mid apical inferior, moderate hypokinesis of mid inferolateral. UCx no significant growth. INRs in general have been 2-2.5 with not a lot of control problems or dose adjustments DIL Jennifer and Son Anish at bedside, updated. Think she may have been found in the bathroom (or alternatively was taken there by EMS immediately before transport to the hospital. Objective Active Medications: Acetaminophen (Tylenol Tab*) 650 mg PO Q4H PRN PRN Reason: FEVER/PAIN Last Admin: 02/06/19 05:19 Dose: 650 mg Al Hydrox/Mg Hydrox/Simethicone (Maalox Plus*) 30 ml PO Q6H PRN PRN Reason: INDIGESTION Docusate Sodium (Colace Cap*) 100 mg PO BID [facility] Last Admin: 02/07/19 08:52 Dose: 100 mg Ferrous Sulfate (Ferrous Sulfate Tab*) 325 mg PO DAILY [facility] Last Admin: 02/07/19 08:52 Dose: 325 mg Fluoxetine HCl (Prozac Cap*) 20 mg PO DAILY [facility] Last Admin: 02/07/19 08:52 Dose: 20 mg Sodium Chloride (Ns 0.9% 1000 Ml) 1,000 mls @ 75 mls/hr IV PER RATE [facility] Last Admin: 02/07/19 00:07 Dose: 75 mls/hr Ceftriaxone Sodium 1 gm/ (Sodium Chloride) 50 mls @ 200 mls/hr IVPB Q24H [facility] Last Admin: 02/07/19 05:01 Dose: 200 mls/hr Ipratropium [place] (Atrovent 0.5 Mg Neb.Neva*) 0.5 mg INH Q6H PRN PRN Reason: SOB/WHEEZING Magnesium Hydroxide (Milk Of Magnesia Liq*) 30 ml PO Q4H PRN PRN Reason: CONSTIPATION Oxybutynin Chloride (Ditropan Xl Tab*) 5 mg PO DAILY [facility] Last Admin: 02/07/19 08:52 Dose: 5 mg Pantoprazole Sodium (Protonix Tab*) 40 mg PO DAILY [facility] Last Admin: 02/07/19 08:55 Dose: Not Given Warfarin Sodium (Coumadin Tab(*)) 5 mg PO EVERY OTHER DAY [facility]; Protocol Last Admin: 02/06/19 17:50 Dose: 5 mg Warfarin Sodium (Coumadin Tab(*)) 2.5 mg PO EVERY OTHER DAY [facility]; Protocol Vital Signs - 8 hr 02/07/19 02/07/19 02/07/19 07:41 08:10 12:30 Temperature 98.1 F 98.2 F Pulse Rate 76 74 Respiratory 18 16 16 Rate Blood Pressure 142/70 152/55 (mmHg) O2 Sat by Pulse 96 94 Oximetry Oxygen Devices in Use Now: None Appearance: NAD, later seen ambulating the unit with PT using walker Eyes: No Scleral Icterus, PERRLA Ears/Nose/Mouth/Throat: NL Teeth, Lips, Gums Neck: NL Appearance and Movements; NL JVP Respiratory: Symmetrical Chest Expansion and Respiratory Effort, Clear to Auscultation Cardiovascular: NL Sounds; No Murmurs; No JVD, RRR Extremities: No Edema, No Clubbing, Cyanosis Skin: No Rash or Ulcers Neurological: Alert and Oriented x 3, NL Sensation, NL Muscle Strength and Tone Nutrition: Taking PO's Result Diagrams: 02/07/19 06:12 02/07/19 06:12 Additional Lab and Data: Laboratory Results - last 24 hr 02/07/19 02/07/19 02/07/19 06:12 06:12 06:12 WBC 9.6 RBC 4.63 Hgb 13.2 Hct 40 MCV 87 MCH 29 MCHC 33 RDW 14 Plt Count 193 MPV 8.9 Neut % (Auto) 70.7 Lymph % (Auto) 18.6 Dunn % (Auto) 7.5 Eos % (Auto) 1.7 Baso % (Auto) 1.5 Absolute Neuts (auto) 6.8 Absolute Lymphs (auto) 1.8 Absolute Monos (auto) 0.7 Absolute Eos (auto) 0.2 Absolute Basos (auto) 0.1 Absolute Nucleated RBC 0.0 Nucleated RBC % 0.0 INR (Anticoag Therapy) 1.63 H Sodium 139 Potassium 3.8 Chloride 108 Carbon Dioxide 25 Anion Gap 6 BUN 11 Creatinine 0.90 Est GFR ( Amer) 72.4 Est GFR (Non-Af Amer) 59.8 BUN/Creatinine Ratio 12.2 Glucose 100 Calcium 8.0 L Microbiology and Other Data: Microbiology 02/06/19 01:53 Urine Culture - Final Urine 02/06/19 01:28 Aerobic Blood Culture - Preliminary Blood Venous No Growth Day 1 Anaerobic Blood Culture - Preliminary No Growth Day 1 02/06/19 01:36 Aerobic Blood Culture - Preliminary Blood Venous No Growth Day 1 Anaerobic Blood Culture - Preliminary No Growth Day 1 Assess/Plan/Problems-Billing Assessment: 83 year old female PMH DVT/PE(2013) then 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 EKG slight ST depression v2-v3. ECHO with regional wall motion abnormalities. - Patient Problems (1) Syncope and collapse Current Visit: Yes Status: Acute Code(s): R55 - SYNCOPE AND COLLAPSE SNOMED Code(s): 625102950 Comment: Can't rule out loss of consciousness and syncope. Preceded by fatigue, nausea, vomting. Never chest pain. Now with wall motion abnormalities on ECHO. Trop peaked at 5.0. No arrythmia on telemetry. INR was subtherapeutic at 1.8 so embolism also in differential. Dr. Roper discussing with son next diagnostic/interventional steps such as possible LHC vs medical managment. (2) Non-ST elevated myocardial infarction Current Visit: No Status: Acute Priority: High Onset Date: 04/15/14 Code (s): I21.4 - NON-ST ELEVATION (NSTEMI) MYOCARDIAL INFARCTION SNOMED Code(s): 20337413 Comment: troponin peaked at 5.0. regional wall motion abnormalites at mid apical inferior. add lipid panel, A1c, repeat EKG never chest pain may have had GI symptom equivalent angina. add atorvastatin 80mg, metoprolol 25mg q6h, lisinopril 2.5mg, aspirin 81mg daily. Hold coumadin until Dr. Roper discusses with son. Continue telemetry. (3) Hx of pulmonary embolus Current Visit: Yes Status: Acute Code(s): Z86.711 - PERSONAL HISTORY OF PULMONARY EMBOLISM SNOMED Code(s): 985689461 Comment: INR daily, adding Ddimer, hold coumadin until decision on cath no cath. (4) Anticoagulation goal of INR 2 to 3 Current Visit: Yes Status: Acute Code(s): Z51.81 - ENCOUNTER FOR THERAPEUTIC DRUG LEVEL MONITORING; Z79.01 - INTERMEDIATE (CURRENT) USE OF ANTICOAGULANTS SNOMED Code(s): 33916582 (5) Fall Current Visit: Yes Status: Acute (6) Depression Current Visit: Yes Status: Acute Code(s): F32.9 - MAJOR DEPRESSIVE DISORDER , SINGLE EPISODE, UNSPECIFIED SNOMED Code(s): 01285190 Comment: continue prozac daily. (7) GERD (gastroesophageal reflux disease) Current Visit: Yes Status: Acute Code(s): K21.9 - GASTRO-ESOPHAGEAL REFLUX DISEASE WITHOUT ESOPHAGITIS SNOMED Code(s): 717330707 Comment: continue protonix 40mg at home was on ranitidine 150mg (8) Sepsis Current Visit: Yes Status: Acute Comment: s/p fluid bolus. Criteria was tachypnea RR 27 and leukcocytosis. near fever, brief tachycardia. lactic acidosis. s/p fluid bolus and resolved. Was on ceftriaxone for potential UTI but UCx no significant growth. Status and Disposition: medicine inpatient. PT recommend continued skilled PT.
--- NOTE | 2019-02-07 14:16 | ECHO ---
[place] [address] Fax #: [phone] Transthoracic Echocardiogram Patient: Yue Nixon Height: 62 in / J 157.5 cm : 1935 Weight: 199.6 lb / Study Date: 02/07/2019 90.7 kg Age: 83 BP: 140 / 72 Gender: F BMI/BSA: 36.6 kg/m^2 HR: 74 bpm / 1.91 m^2 *Specialty Plant Supervisor: * Danitza Polk RDCS RN *Referring Physician: Lynn Mccray *Reading Physician: * Yuniel Roper MD Indications: Myocardial Infarction (new). History: Risk factors: Former tobacco use. No hypertension. Obese. DVT. Pulmonary embolism. Conclusions Summary: 1. Left ventricle: The cavity size is normal. Wall thickness is mildly to moderately increased. Systolic function is normal. The estimated ejection fraction is 55-60%. 2. Regional wall motion abnormality: Hypokinesis of the mid-apical inferior myocardium; moderate hypokinesis of the mid inferolateral myocardium. 3. Right ventricle: The cavity size is normal. Systolic function is normal. 4. Left atrium: The atrium is normal in size. 5. No significant valvular abnormalities noted Recommendations: None prior for comparison at time of interpretation Study data: Transthoracic echocardiogram. Procedure: Transthoracic echocardiography was performed. Image quality was fair. The study was technically limited due to body habitus and Smoking history. Intravenous Definity 3.5 ml was administered. Image enhancement administered by Toño Polk RN, RDCS. Complete 2D, spectral Doppler, and color flow Doppler. Patient status: Inpatient. Patient room number: 449-01. Rhythm: Normal sinus rhythm. Findings Left ventricle: The cavity size is normal. Wall thickness is mildly to moderately increased. Systolic function is normal. The estimated ejection fraction is 55-60%. Regional wall motion abnormalities: Hypokinesis of the mid-apical inferior myocardium; moderate hypokinesis of the mid inferolateral myocardium. Abnormal diastolic filling pattern. Right ventricle: The cavity size is normal. Systolic function is normal. Left atrium: The atrium is normal in size. Right atrium: The atrium is normal in size. Mitral valve: The leaflets are mildly thickened. There is no evidence of stenosis. There is no significant regurgitation. Aortic valve: Not well visualized. The leaflets are mildly thickened. There is no evidence of stenosis. There is mild regurgitation. Tricuspid valve: Not well visualized. There is no evidence of stenosis. There is trivial regurgitation. Pulmonic valve: Not well visualized. Aorta: Aortic root: The aortic root is not dilated. Ascending aorta: The ascending aorta is not dilated. Aortic arch: The aortic arch is not visualized. Pericardium: There is no significant pericardial effusion. Pulmonary arteries: Not well visualized. Systemic veins: Inferior vena cava: The vessel is normal in size. The respirophasic diameter changes are in the normal range (>= 50%). Measurements Left ventricle Value Ref Right atrium Value Ref DADA, LAX 4.2 cm 3.8 - ML dim, ES, A4C 3.8 cm 2.6 - 4.4 5.2 SI dim, ES, A4C 5.2 cm 3.4 - 5.3 ESD, LAX 2.8 cm 2.2 - 3.5 Aortic valve Value Ref FS, LAX (L) 25 % 27 - 45 Tylor diam, ED 2.0 cm --------- PW, ED, LAX (H) 1.3 cm 0.6 - Tylor diam/bsa, ED 1.1 cm/m^2 --------- 0.9 Peak v, S 1.69 m/sec --------- PW, ED (H) 1.3 cm 0.6 - VTI, S 33.4 cm --------- 0.9 Mean grad, S 7.0 mm Hg --------- IVS/PW, ED 0.98 -------- Peak grad, S 11.0 mm Hg --------- E', lat tylor, TDI (L) 6.4 cm/sec >=10.0 LVOT/AV, VTI ratio 0.59 - -------- E/e', lat tylor, TDI 14 -------- E', med tylor, TDI 7.7 cm/sec >=7.0 Mitral valve Value R ef E/e', med tylor, TDI 12 -------- Peak E 0.89 m/sec ---- ----- E', avg, TDI 7.1 cm/sec -------- Peak A 1.14 m/sec ---- ----- E/e', avg, TDI 13 <=14 Decel time 261 ms - -------- Peak grad, D 3.2 mm Hg --------- LVOT Value Ref Peak E/A ratio 0.8 --------- Peak martha, S 1 m/sec -------- Mean martha, S 0.64 m/sec -------- Pulmonic valve Value Ref VTI, S 19.7 cm -------- Peak v, S 0.77 m/sec --------- Mean grad, S 2 mm Hg -------- Peak grad, S 2.0 mm Hg --------- Ventricular septum Value Ref Aortic root Value Ref IVS, ED, LAX (H) 1.3 cm 0.6 - Root max diam, ED 3.0 cm <4.1 0.9 Ascending aorta Value Ref Right ventricle Value Ref AAo AP diam, S 3.0 cm --------- DADA minor ax, A4C 3.5 cm 1.9 - mid 3.5 Inferior vena cava Value Ref Diam 1.4 cm --------- Left atrium Value Ref ML dim, A4C 3.8 cm -------- SI dim, A4C 5.2 cm -------- Vol/bsa, ES, 1-p 23 ml/m^2 11 - 40 A4C Vol/bsa, ES, A/L 24 ml/m^2 16 - 34 Legend: (L) and (H) gudelia values outside specified reference range. Prepared and electronically signed by Yuniel Roper MD 02/07/2019 14:16
[2019-02-07] MEDS ORDERED: Atorvastatin* 80 MG TAB PO ONE (14:45)
--- NOTE | 2019-02-07 14:54 | PN ---
Subjective Date of Service: 02/07/19 Interval History: f/u ? AMI no chest or abdomen pain, no nausea or vomiting tele: nsr, no arrhythmias Medications Active Medications: Acetaminophen (Tylenol Tab*) 650 mg PO Q4H PRN PRN Reason: FEVER/PAIN Last Admin: 02/06/19 05:19 Dose: 650 mg Al Hydrox/Mg Hydrox/Simethicone (Maalox Plus*) 30 ml PO Q6H PRN PRN Reason: INDIGESTION Aspirin (Aspirin 81 Mg Chew Tab*) 81 mg PO DAILY [facility] Atorvastatin Calcium (Lipitor*) 80 mg PO ONCE ONE Stop: 02/07/19 14:46 Docusate Sodium (Colace Cap*) 100 mg PO BID [facility] Last Admin: 02/07/19 08:52 Dose: 100 mg Ferrous Sulfate (Ferrous Sulfate Tab*) 325 mg PO DAILY [facility] Last Admin: 02/07/19 08:52 Dose: 325 mg Fluoxetine HCl (Prozac Cap*) 20 mg PO DAILY [facility] Last Admin: 02/07/19 08:52 Dose: 20 mg Sodium Chloride (Ns 0.9% 1000 Ml) 1,000 mls @ 75 mls/hr IV PER RATE [facility] Last Admin: 02/07/19 00:07 Dose: 75 mls/hr Ceftriaxone Sodium 1 gm/ (Sodium Chloride) 50 mls @ 200 mls/hr IVPB Q24H [facility] Last Admin: 02/07/19 05:01 Dose: 200 mls/hr Ipratropium [place] (Atrovent 0.5 Mg Neb.Michael*) 0.5 mg INH Q6H PRN PRN Reason: SOB/WHEEZING Lisinopril (Prinivil Tab*) 2.5 mg PO DAILY [facility] Magnesium Hydroxide (Milk Of Magnesia Liq*) 30 ml PO Q4H PRN PRN Reason: CONSTIPATION Metoprolol Tartrate (Lopressor Tab*) 25 mg PO Q6H [facility] Oxybutynin Chloride (Ditropan Xl Tab*) 5 mg PO DAILY [facility] Last Admin: 02/07/19 08:52 Dose: 5 mg Pantoprazole Sodium (Protonix Tab*) 40 mg PO DAILY [facility] Last Admin: 02/07/19 08:55 Dose: Not Given Home meds FLUoxetine CAP* [Prozac CAP*] 20 mg PO DAILY 04/15/14 [History Confirmed ] Ibandronate Sodium* [Boniva*] 1 syr .ROUTE SEE INSTRUCTIONS 04/15/14 [History Confirmed 02/06/19] Lansoprazole SOLUTAB* [Prevacid Solutab*] 30 mg PO DAILY 04/15/14 [History Confirmed 02/06/19] Oxybutynin TAB* [Ditropan TAB*] 5 mg PO MONTHLY 04/15/14 [History Confirmed ] Ferrous Sulfate TAB* 325 mg PO DAILY 02/06/19 [History Confirmed 02/06/19] Ipratropium 0.5MG/2.5ML NEB* [Atrovent 0.5 MG NEB.MICHAEL*] 0.5 mg INH Q6H PRN 02/06 [History Confirmed 02/06/19] Warfarin Sodium 1 tab PO EVERY OTHER DAY 02/06/19 [History Confirmed 02/06/19] Warfarin Sodium 2.5 mg PO EVERY OTHER DAY 02/06/19 [History Confirmed 02/06/19] raNITIdine HCl [Ranitidine HCl] 150 mg PO BEDTIME 02/06/19 [History Confirmed ] Objective Vital Signs: Temp Pulse Resp BP Pulse Ox 98.2 F 74 16 152/55 94 02/07/19 12:30 02/07/19 12:30 02/07/19 12:30 02/07/19 12:30 02/07/19 12:30 Oxygen Devices in Use Now: None Appearance: nad, pleasant, head tremor Ears/Nose/Mouth/Throat: NL Teeth, Lips, Gums Neck: NL Appearance and Movements; NL JVP Respiratory: Symmetrical Chest Expansion and Respiratory Effort, Clear to Auscultation Cardiovascular: NL Sounds; No Murmurs; No JVD, RRR, No Edema Abdominal: - - soft, obese Extremities: No Edema Skin: No Rash or Ulcers Neurological: Alert and Oriented x 3 Laboratory Results: 02/07/19 06:12 02/07/19 06:12 INR (Anticoag Therapy) 1.63 (0.82-1.09) H 02/07/19 06:12 Total Bilirubin 0.60 mg/dL (0.2-1.0) 02/06/19 00:43 AST 25 U/L (13-39) 02/06/19 00:43 ALT 17 U/L (7-52) 02/06/19 00:43 Alkaline Phosphatase 93 U/L (34-104) 02/06/19 00:43 B-Natriuretic Peptide 182 pg/mL (<=100) H 02/06/19 00:43 Total Protein 7.2 g/dL (6.4-8.9) 02/06/19 00:43 Albumin 4.2 g/dL (3.2-5.2) 02/06/19 00:43 Globulin 3.0 g/dL (2-4) 02/06/19 00:43 Albumin/Globulin Ratio 1.4 (1-3) 02/06/19 00:43 TSH 1.34 mcIU/mL (0.34-5.60) 02/06/19 00:43 02/06/19 02/06/19 02/06/19 00:43 04:33 05:17 Troponin I 2.00 H* 5.04 H* 3.79 H* Diagnostic Imaging: Cardiac Catheterization Report Provider: Tita Lancaster MD CARDIAC CATHETERIZATION: DATE OF PROCEDURE: 04/15/14 right femoral access site. INDICATION: This patient arrived at our hospital with what appeared to be unstable angina (class IV). She has also displayed significant T-wave abnormalities compared to another electrocardiogram taken this morning at another hospital. HEMODYNAMICS: Central aortic pressure was 135/60 mmHg, left ventricular systolic pressure at 135 mmHg, left ventricular end-diastolic pressure was 10 mmHg. There is no gradient across the aortic valve. CORONARY ANATOMY: Codominant system. LEFT MAIN SEGMENT: It is a long left main and is of large caliber with no visible obstructive disease. LEFT ANTERIOR DESCENDING ARTERY: It is a large caliber vessel with no significant obstructive disease. CIRCUMFLEX ARTERY: A large caliber vessel with no significant obstructive disease. RIGHT CORONARY ARTERY: A large caliber vessel with no visible obstructive disease. LEFT VENTRICULAR ANGIOGRAPHY: Left ventricle appears at its upper limits of normal. No WMA The visual estimated ejection fraction is approximately 70% . There was no mitral regurgitation. IMPRESSION: No visible obstructive disease noted in the coronary arterial tree. Normal left ventricular systolic function. Normal left ventricular filling pressures. Consider Other etiologies for dyspnea such as PE Exam Date: 04/16/14 cta chest Indication: Chest pain. Evaluate for pulmonary embolus. There is bilateral, third order and distal, acute pulmonary emboli involving the upper lower lungs bilaterally. IMPRESSION: BILATERAL PULMONARY EMBOLI. Exam Date: 04/16/14 VL LOWER EXT VEINS BILATERAL IMPRESSION: RIGHT POSTERIOR TIBIAL VEIN DEEP VENOUS THROMBOSIS. Exam Date: 02/05/19 CT Head Without Contrast IMPRESSION: Limited examination due to motion and streak artifact. No large intracranial hemorrhage or large vessel territorial infarct. Exam Date: 02/06/19 0110 CHEST AP OR PORT IMPRESSION: QUESTION OF INFILTRATE IN THE LEFT LUNG BASE. FOLLOW-UP EXAM IS SUGGESTED. 02/07/2019 Conclusions 1. Left ventricle: The cavity size is normal. Wall thickness is mildly to moderately increased. Systolic function is normal. The estimated ejection fraction is 55-60%. 2. Regional wall motion abnormality: Hypokinesis of the mid-apical inferior myocardium; moderate hypokinesis of the mid inferolateral myocardium. 3. Right ventricle: The cavity size is normal. Systolic function is normal. 4. Left atrium: The atrium is normal in size. 5. No significant valvular abnormalities noted\ Recommendations: None prior for comparison at time of interpretation EKG Data: ekg 03/2014: NSR, iRBBB, diffuse ischemic twi ekg x 2 this admission unchanged: NSR, LAE, incomplete rbbb, non-specific st depression Assessment/Plan 1. Elevated troponin level, segmental wall motion abnormality on echo - ? atypical VT presentation (plaque rupture, embolic due to subtherapeutic INR less likely due to normal d-dimer, etc.) vs. 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 History of DVT/PE - Recurrent of OAC, [facility] warfarin therapy 3. Obesity 4. Remote tobacco use 5. Impaired fasting glucose 6. Dyslipidemia I had a long extensive conversation with patient and her son Anish at bedside regarding patients clinical presentation. We reviewed the history again and he added some information (i.e. chills with thermostat set to 70 degrees prior to fall, unusual dystonic body movements). 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 dehydration, infection, head trauma from fall, etc). I cannot entirely exclude a type 1 VT. She is now asymptomatic with an overall normal LVEF with no arrhythmias or heart failure. We discussed definitive diagnosis being an invasive cardiac catheterization. She declined this. She is agreeable to empiric medical management for VT eventhough this diagnosis is uncertain. Given that her INR was subtherapeutic on admission, will not keep on aspirin usp and only use anticoagulation alone. She declines a dose of lovenox this evening but is agreeable to a 5 mg dose of warfarin in place of her usual Friday night 2.5 mg dose. Would add intensive dose statin, toprol 25 mg po daily (ordered) and lisinopril 2.5 mg po daily. Continue cardiac monitoring tonight. Her son would be able to pick her up later tomorrow and if she otherwise remains stable could be discharged form a cardiac standpoint later tomorrow. Thank you for allowing me to participate in the cardiovascular care of this patient. Please do not hesitate to contact me with questions or concerns.
[2019-02-07 14:55] LABS: HDL Cholesterol 39.5 mg/dL
[2019-02-07] MEDS ORDERED: Aspirin 81 mg CHEW TAB* 81 MG TAB.CHEW PO SCH (15:00)
[2019-02-07] MEDS ORDERED: Metoprolol Tartrate TAB* 25 MG PO SCH (15:00)
[2019-02-07] MEDS: Lisinopril TAB* 5 MG PO SCH (16:03)
[2019-02-07] MEDS ORDERED: Warfarin TAB(*) 2.5 MG PO SCH (17:00)
[2019-02-07] MEDS ORDERED: Warfarin TAB(*) 5 MG PO ONE (18:00)
[2019-02-08] MEDS: cefTRIAXone(*) 1 GM in NS 0.9% 50 ML* 50 ML IVPB SCH (05:36)
[2019-02-08 06:27] LABS: INR 1.93 (0.82-1.09)
[2019-02-08] MEDS: Pantoprazole TAB * 40 MG TAB PO SCH (07:36)
--- NOTE | 2019-02-08 08:11 | PN ---
Subjective Date of Service: 02/08/19 Interval History: f/u ? AMI no chest or abdomen pain, no nausea or vomiting feels well, wants to go home tele: nsr/sinus bradycardia, no arrhythmias Medications Active Medications: Acetaminophen (Tylenol Tab*) 650 mg PO Q4H PRN PRN Reason: FEVER/PAIN Last Admin: 02/06/19 05:19 Dose: 650 mg Al Hydrox/Mg Hydrox/Simethicone (Maalox Plus*) 30 ml PO Q6H PRN PRN Reason: INDIGESTION Docusate Sodium (Colace Cap*) 100 mg PO BID [facility] Last Admin: 02/07/19 20:53 Dose: Not Given Ferrous Sulfate (Ferrous Sulfate Tab*) 325 mg PO DAILY [facility] Last Admin: 02/07/19 08:52 Dose: 325 mg Fluoxetine HCl (Prozac Cap*) 20 mg PO DAILY [facility] Last Admin: 02/07/19 08:52 Dose: 20 mg Ceftriaxone Sodium 1 gm/ (Sodium Chloride) 50 mls @ 200 mls/hr IVPB Q24H [facility] Last Admin: 02/08/19 05:36 Dose: 200 mls/hr Ipratropium [place] (Atrovent 0.5 Mg Neb.Neva*) 0.5 mg INH Q6H PRN PRN Reason: SOB/WHEEZING Lisinopril (Prinivil Tab*) 2.5 mg PO DAILY [facility] Last Admin: 02/07/19 16:03 Dose: 2.5 mg Magnesium Hydroxide (Milk Of Magnesia Liq*) 30 ml PO Q4H PRN PRN Reason: CONSTIPATION Metoprolol Succinate (Toprol Xl Tab*) 25 mg PO DAILY [facility] Oxybutynin Chloride (Ditropan Xl Tab*) 5 mg PO DAILY [facility] Last Admin: 02/07/19 08:52 Dose: 5 mg Pantoprazole Sodium (Protonix Tab*) 40 mg PO DAILY [facility] Last Admin: 02/08/19 07:36 Dose: 40 mg Warfarin Sodium (Coumadin Tab(*)) 5 mg PO Q48H [facility]; Protocol Warfarin Sodium (Coumadin Tab(*)) 2.5 mg PO Q48H [facility]; Protocol Objective Vital Signs: Temp Pulse Resp BP Pulse Ox 97.8 F 60 20 146/85 98 02/08/19 03:07 02/08/19 03:07 02/08/19 03:07 02/08/19 03:07 02/08/19 03:07 Oxygen Devices in Use Now: Nasal Cannula Appearance: nad, pleasant, head tremor Ears/Nose/Mouth/Throat: NL Teeth, Lips, Gums Neck: NL Appearance and Movements; NL JVP Respiratory: Symmetrical Chest Expansion and Respiratory Effort, Clear to Auscultation Cardiovascular: NL Sounds; No Murmurs; No JVD, RRR, No Edema Abdominal: - - soft, obese Extremities: No Edema Skin: No Rash or Ulcers Neurological: Alert and Oriented x 3 Laboratory Results: 02/07/19 06:12 02/07/19 06:12 INR (Anticoag Therapy) 1.93 (0.82-1.09) H 02/08/19 05:43 Total Bilirubin 0.60 mg/dL (0.2-1.0) 02/06/19 00:43 AST 25 U/L (13-39) 02/06/19 00:43 ALT 17 U/L (7-52) 02/06/19 00:43 Alkaline Phosphatase 93 U/L (34-104) 02/06/19 00:43 B-Natriuretic Peptide 182 pg/mL (<=100) H 02/06/19 00:43 Total Protein 7.2 g/dL (6.4-8.9) 02/06/19 00:43 Albumin 4.2 g/dL (3.2-5.2) 02/06/19 00:43 Globulin 3.0 g/dL (2-4) 02/06/19 00:43 Albumin/Globulin Ratio 1.4 (1-3) 02/06/19 00:43 Triglycerides 135 mg/dL 02/07/19 06:12 Cholesterol 247 mg/dL 02/07/19 06:12 LDL Cholesterol 181 mg/dL 02/07/19 06:12 HDL Cholesterol 39.5 mg/dL 02/07/19 06:12 TSH 1.34 mcIU/mL (0.34-5.60) 02/06/19 00:43 02/06/19 02/06/19 02/06/19 00:43 04:33 05:17 Troponin I 2.00 H* 5.04 H* 3.79 H* Diagnostic Imaging: Cardiac Catheterization Report Provider: Tita Lancaster MD CARDIAC CATHETERIZATION: DATE OF PROCEDURE: 04/15/14 right femoral access site. INDICATION: This patient arrived at our hospital with what appeared to be unstable angina (class IV). She has also displayed significant T-wave abnormalities compared to another electrocardiogram taken this morning at another hospital. HEMODYNAMICS: Central aortic pressure was 135/60 mmHg, left ventricular systolic pressure at 135 mmHg, left ventricular end-diastolic pressure was 10 mmHg. There is no gradient across the aortic valve. CORONARY ANATOMY: Codominant system. LEFT MAIN SEGMENT: It is a long left main and is of large caliber with no visible obstructive disease. LEFT ANTERIOR DESCENDING ARTERY: It is a large caliber vessel with no significant obstructive disease. CIRCUMFLEX ARTERY: A large caliber vessel with no significant obstructive disease. RIGHT CORONARY ARTERY: A large caliber vessel with no visible obstructive disease. LEFT VENTRICULAR ANGIOGRAPHY: Left ventricle appears at its upper limits of normal. No WMA The visual estimated ejection fraction is approximately 70% . There was no mitral regurgitation. IMPRESSION: No visible obstructive disease noted in the coronary arterial tree. Normal left ventricular systolic function. Normal left ventricular filling pressures. Consider Other etiologies for dyspnea such as PE Exam Date: 04/16/14 cta chest Indication: Chest pain. Evaluate for pulmonary embolus. There is bilateral, third order and distal, acute pulmonary emboli involving the upper lower lungs bilaterally. IMPRESSION: BILATERAL PULMONARY EMBOLI. Exam Date: 04/16/14 VL LOWER EXT VEINS BILATERAL IMPRESSION: RIGHT POSTERIOR TIBIAL VEIN DEEP VENOUS THROMBOSIS. Exam Date: 02/05/19 CT Head Without Contrast IMPRESSION: Limited examination due to motion and streak artifact. No large intracranial hemorrhage or large vessel territorial infarct. Exam Date: 02/06/19 0110 CHEST AP OR PORT IMPRESSION: QUESTION OF INFILTRATE IN THE LEFT LUNG BASE. FOLLOW-UP EXAM IS SUGGESTED. 02/07/2019 Conclusions 1. Left ventricle: The cavity size is normal. Wall thickness is mildly to moderately increased. Systolic function is normal. The estimated ejection fraction is 55-60%. 2. Regional wall motion abnormality: Hypokinesis of the mid-apical inferior myocardium; moderate hypokinesis of the mid inferolateral myocardium. 3. Right ventricle: The cavity size is normal. Systolic function is normal. 4. Left atrium: The atrium is normal in size. 5. No significant valvular abnormalities noted\ Recommendations: None prior for comparison at time of interpretation EKG Data: ekg 03/2014: NSR, iRBBB, diffuse ischemic twi ekg x 2 this admission unchanged: NSR, LAE, incomplete rbbb, non-specific st depression Assessment/Plan 1. Elevated troponin level, segmental wall motion abnormality on echo - ? atypical CO presentation (plaque rupture, embolic due to subtherapeutic INR less likely due to normal d-dimer, etc.) vs. 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 History of DVT/PE - Recurrent of OAC, usp warfarin therapy 3. Obesity 4. Remote tobacco use 5. Impaired fasting glucose 6. Dyslipidemia I had a long extensive conversation with patient and her son Anish at bedside regarding patients clinical presentation. We reviewed the history again and he added some information (i.e. chills with thermostat set to 70 degrees prior to fall, unusual dystonic body movements). 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 dehydration, infection, head trauma from fall, etc). I cannot entirely exclude a type 1 CO. She is now asymptomatic with an overall normal LVEF with no arrhythmias or heart failure. We discussed definitive diagnosis being an invasive cardiac catheterization. She declined this. She is agreeable to empiric medical management for CO eventhough this diagnosis is uncertain. Given that her INR was subtherapeutic on admission, will not keep on aspirin [employer] and only use anticoagulation alone. She declines a dose of lovenox this evening but is agreeable to a 5 mg dose of warfarin in place of her usual Friday night 2.5 mg dose. Would add intensive dose statin, toprol 25 mg po daily (ordered) and lisinopril 2.5 mg po daily. Continue cardiac monitoring tonight. Her son would be able to pick her up later tomorrow and if she otherwise remains stable could be discharged form a cardiac standpoint later tomorrow. Thank you for allowing me to participate in the cardiovascular care of this patient. Please do not hesitate to contact me with questions or concerns.
--- NOTE | 2019-02-08 08:17 | PN ---
Subjective Date of Service: 02/08/19 Interval History: f/u ? AMI no chest or abdomen pain, no nausea or vomiting feels well, wants to go home tele: nsr/sinus bradycardia, no arrhythmias Medications Active Medications: Acetaminophen (Tylenol Tab*) 650 mg PO Q4H PRN PRN Reason: FEVER/PAIN Last Admin: 02/06/19 05:19 Dose: 650 mg Al Hydrox/Mg Hydrox/Simethicone (Maalox Plus*) 30 ml PO Q6H PRN PRN Reason: INDIGESTION Docusate Sodium (Colace Cap*) 100 mg PO BID [facility] Last Admin: 02/07/19 20:53 Dose: Not Given Ferrous Sulfate (Ferrous Sulfate Tab*) 325 mg PO DAILY [facility] Last Admin: 02/07/19 08:52 Dose: 325 mg Fluoxetine HCl (Prozac Cap*) 20 mg PO DAILY [facility] Last Admin: 02/07/19 08:52 Dose: 20 mg Ceftriaxone Sodium 1 gm/ (Sodium Chloride) 50 mls @ 200 mls/hr IVPB Q24H [facility] Last Admin: 02/08/19 05:36 Dose: 200 mls/hr Ipratropium [place] (Atrovent 0.5 Mg Neb.Neva*) 0.5 mg INH Q6H PRN PRN Reason: SOB/WHEEZING Lisinopril (Prinivil Tab*) 2.5 mg PO DAILY [facility] Last Admin: 02/07/19 16:03 Dose: 2.5 mg Magnesium Hydroxide (Milk Of Magnesia Liq*) 30 ml PO Q4H PRN PRN Reason: CONSTIPATION Metoprolol Succinate (Toprol Xl Tab*) 25 mg PO DAILY [facility] Oxybutynin Chloride (Ditropan Xl Tab*) 5 mg PO DAILY [facility] Last Admin: 02/07/19 08:52 Dose: 5 mg Pantoprazole Sodium (Protonix Tab*) 40 mg PO DAILY [facility] Last Admin: 02/08/19 07:36 Dose: 40 mg Warfarin Sodium (Coumadin Tab(*)) 5 mg PO Q48H [facility]; Protocol Warfarin Sodium (Coumadin Tab(*)) 2.5 mg PO Q48H [facility]; Protocol Objective Vital Signs: Temp Pulse Resp BP Pulse Ox 97.8 F 60 20 146/85 98 02/08/19 03:07 02/08/19 03:07 02/08/19 03:07 02/08/19 03:07 02/08/19 03:07 Oxygen Devices in Use Now: Nasal Cannula Appearance: nad, pleasant Ears/Nose/Mouth/Throat: NL Teeth, Lips, Gums Neck: NL Appearance and Movements; NL JVP Respiratory: Symmetrical Chest Expansion and Respiratory Effort, Clear to Auscultation Cardiovascular: NL Sounds; No Murmurs; No JVD, RRR, No Edema Abdominal: - - soft, obese Extremities: No Edema Skin: No Rash or Ulcers Neurological: Alert and Oriented x 3 Laboratory Results: 02/07/19 06:12 02/07/19 06:12 INR (Anticoag Therapy) 1.93 (0.82-1.09) H 02/08/19 05:43 Total Bilirubin 0.60 mg/dL (0.2-1.0) 02/06/19 00:43 AST 25 U/L (13-39) 02/06/19 00:43 ALT 17 U/L (7-52) 02/06/19 00:43 Alkaline Phosphatase 93 U/L (34-104) 02/06/19 00:43 B-Natriuretic Peptide 182 pg/mL (<=100) H 02/06/19 00:43 Total Protein 7.2 g/dL (6.4-8.9) 02/06/19 00:43 Albumin 4.2 g/dL (3.2-5.2) 02/06/19 00:43 Globulin 3.0 g/dL (2-4) 02/06/19 00:43 Albumin/Globulin Ratio 1.4 (1-3) 02/06/19 00:43 Triglycerides 135 mg/dL 02/07/19 06:12 Cholesterol 247 mg/dL 02/07/19 06:12 LDL Cholesterol 181 mg/dL 02/07/19 06:12 HDL Cholesterol 39.5 mg/dL 02/07/19 06:12 TSH 1.34 mcIU/mL (0.34-5.60) 02/06/19 00:43 02/06/19 02/06/19 02/06/19 00:43 04:33 05:17 Troponin I 2.00 H* 5.04 H* 3.79 H* Diagnostic Imaging: Cardiac Catheterization Report Provider: Tita Lancaster MD CARDIAC CATHETERIZATION: DATE OF PROCEDURE: 04/15/14 right femoral access site. INDICATION: This patient arrived at our hospital with what appeared to be unstable angina (class IV). She has also displayed significant T-wave abnormalities compared to another electrocardiogram taken this morning at another hospital. HEMODYNAMICS: Central aortic pressure was 135/60 mmHg, left ventricular systolic pressure at 135 mmHg, left ventricular end-diastolic pressure was 10 mmHg. There is no gradient across the aortic valve. CORONARY ANATOMY: Codominant system. LEFT MAIN SEGMENT: It is a long left main and is of large caliber with no visible obstructive disease. LEFT ANTERIOR DESCENDING ARTERY: It is a large caliber vessel with no significant obstructive disease. CIRCUMFLEX ARTERY: A large caliber vessel with no significant obstructive disease. RIGHT CORONARY ARTERY: A large caliber vessel with no visible obstructive disease. LEFT VENTRICULAR ANGIOGRAPHY: Left ventricle appears at its upper limits of normal. No WMA The visual estimated ejection fraction is approximately 70% . There was no mitral regurgitation. IMPRESSION: No visible obstructive disease noted in the coronary arterial tree. Normal left ventricular systolic function. Normal left ventricular filling pressures. Consider Other etiologies for dyspnea such as PE Exam Date: 04/16/14 cta chest Indication: Chest pain. Evaluate for pulmonary embolus. There is bilateral, third order and distal, acute pulmonary emboli involving the upper lower lungs bilaterally. IMPRESSION: BILATERAL PULMONARY EMBOLI. Exam Date: 04/16/14 VL LOWER EXT VEINS BILATERAL IMPRESSION: RIGHT POSTERIOR TIBIAL VEIN DEEP VENOUS THROMBOSIS. Exam Date: 02/05/19 CT Head Without Contrast IMPRESSION: Limited examination due to motion and streak artifact. No large intracranial hemorrhage or large vessel territorial infarct. Exam Date: 02/06/19 0110 CHEST AP OR PORT IMPRESSION: QUESTION OF INFILTRATE IN THE LEFT LUNG BASE. FOLLOW-UP EXAM IS SUGGESTED. 02/07/2019 Conclusions 1. Left ventricle: The cavity size is normal. Wall thickness is mildly to moderately increased. Systolic function is normal. The estimated ejection fraction is 55-60%. 2. Regional wall motion abnormality: Hypokinesis of the mid-apical inferior myocardium; moderate hypokinesis of the mid inferolateral myocardium. 3. Right ventricle: The cavity size is normal. Systolic function is normal. 4. Left atrium: The atrium is normal in size. 5. No significant valvular abnormalities noted\ Recommendations: None prior for comparison at time of interpretation EKG Data: ekg 03/2014: NSR, iRBBB, diffuse ischemic twi ekg 02/06/2019 x 2: NSR, LAE, incomplete rbbb, non-specific st depression EKG INTERPRETATION Date of ECG 02/07/2019 14:58:30 Sinus rhythm.normal P axis, V-rate 60- 9 LEFT AXIS DEVIATION SINCE THE PREVIOUS RECORD OF 12 Lead 02/06/2019 03:03:52, lateral v4-v6 changes more convincing for ischemia Assessment/Plan 1. Elevated troponin level, segmental wall motion abnormality on echo - ? atypical [place] presentation vs. atypical stress cardiomyopathy due to another acute process (suspect latter, overall uncertain, see note from yesterday) - Now asymptomatic, no arrhythmias, recurrent symptoms, CHF or arrhythmias 2. History of DVT/PE - Recurrent of OAC, detention warfarin therapy 3. Obesity 4. Remote tobacco use 5. Impaired fasting glucose 6. Dyslipidemia Given that her INR was subtherapeutic on admission, would not use aspirin shelter and only use anticoagulation alone. Continue toprol 25 mg po daily Continue lisinopril 2.5 mg po daily Add lipitor 80 mg po daily (ordered), she tolerated this well in the past. if she otherwise remains stable could be discharged form a cardiac standpoint later today (Friday02/08/2019) She should follow up with Dr. Duffy and follow up with cardiology as needed at his discretion Thank you for allowing me to participate in the cardiovascular care of this patient. Please do not hesitate to contact me with questions or concerns.
[2019-02-08] MEDS ORDERED: Metoprolol Succinate XL TAB* 25 MG PO SCH (09:00)
[2019-02-08] MEDS: Docusate CAP* 100 MG PO SCH (09:41)
[2019-02-08] MEDS: FLUoxetine CAP* 20 MG PO SCH (09:44)
[2019-02-08] MEDS: Oxybutynin XL TAB* 5 MG PO SCH (09:44)
[2019-02-08] MEDS: Lisinopril TAB* 5 MG PO SCH (09:45)
[2019-02-08] MEDS: Ferrous Sulfate TAB* 325 MG PO SCH (09:45)
[2019-02-08 11:46] VITALS: BP 138/63
--- NOTE | 2019-02-08 12:07 | DS ---
CC: Dr. Tavares Duffy* DISCHARGE SUMMARY: DATE OF ADMISSION: 02/05/19 DATE OF DISCHARGE: 02/08/19 DISPOSITION: Discharged home. CONDITION ON DISCHARGE: Improved. PRIMARY DIAGNOSES: 1. Syncope. 2. Elevated troponin, suspect demand ischemia. 3. Abnormal x-ray with concern for pneumonia, left base. SECONDARY DIAGNOSES: 1. Gastroesophageal reflux disease. 2. History of deep venous thrombosis and pulmonary embolism in 2013. 3. Depression. 4. Osteoporosis. 5. Overactive bladder. IMAGING: Chest x-ray: Impression: Question of infiltrate in the left lung base; followup exam is suggested. Lower extremity Doppler study, impression: No evidence of DVT bilaterally. Transthoracic echocardiogram, impression: LV cavity size is normal, wall thickness is mildly to moderately increased, systolic function is normal. Estimated LVEF is 55% to 60%. There are regional wall motion abnormalities with hypokinesis in the mid apical and inferior myocardium. Moderate hypokinesis of the mid inferolateral myocardium. No significant valvular abnormalities. PERTINENT LABORATORY DATA: INR on the day of discharge 1.93, D-dimer less than 200, troponin I peaked at 5.0, total cholesterol 247, LDL 181, HDL is 39, lactic acid on presentation is 2.5. White blood cell count on presentation 13.8 , decreased to 9.6 on the following day. HISTORY OF PRESENT ILLNESS AND HOSPITAL COURSE: This is a pleasant 83-year-old female with past medical history as outlined in the history of present illness, on the day of admission presented to the hospital after feeling weak, pressing Life Alert, found down with concern for fall versus syncope. The patient is not quite cognizant of the events revolving around her fall and so syncope is favored. She was found with an elevated troponin as well as leukocytosis as indicated above. She received ceftriaxone, as well as consulted with Cardiology. In conversations with our tuberculosis specialist, Dr. Roper, cardiac catheterization was discussed; however, the patient at this time does not wish to pursue with any additional interventions. This was confirmed on the day of discharge by this author. She was started on maximum medical therapy with lisinopril, metoprolol, and atorvastatin. All medications were sent to her pharmacy. She had no chest discomfort at the time of her event nor during the course of her hospital stay including with ambulating around the unit. Acute myocardial infarction cannot be ruled out. The patient at this time does not wish to pursue more aggressive interventions. However, alternative diagnoses do include a pneumonia as evidenced by the chest x-ray. For this reason, she will continue on 2 additional days of Levaquin, although clinically she has not appeared to have a pneumonia. As an outpatient, can consider cardiac stress testing and/or cardiac catheterization. Would recommend followup with the tuberculosis specialist as indicated to the patient on the day of discharge by this author. FOLLOWUP: 1. Follow INR, order for Friday 2 days after discharge. 2. Evaluate for any side effects of new medications which include lisinopril, metoprolol, and resumption of atorvastatin. 3. Refer to tuberculosis specialist as deemed necessary. 4. Chest x-ray indicates consideration for followup. Can consider followup chest x-ray if deemed necessary. Lungs were clear on the day of discharge clinically without a pneumonia, although she does have 2 additional days of antibiotics to complete a 5-day course. 5. No additional labs or vitals that need followup. 6. Of note, aspirin was purposely not started at the behest of consulting tuberculosis specialist. DISCHARGE MEDICATIONS: 1. Ferrous sulfate 325 mg daily. 2. Ipratropium nebulizer every 6 hours as needed. 3. Ranitidine 150 mg at bedtime. 4. Coumadin 5 mg every other day alternating with 2.5 mg every other day. 5. Prozac 20 mg daily. 6. Boniva 1 syringe as instructed. 7. Oxybutynin 5 mg . 8. Lansoprazole 30 mg daily. 9. Levaquin 750 mg daily for 2 additional days. 10. Metoprolol succinate 25 mg daily. 11. Lisinopril 2.5 mg daily. 12. Atorvastatin 80 mg in the evening. Reasons to return to the hospital include, but not limited to, recurrent or worsening symptoms, chest pain or chest discomfort, shortness of breath, lightheadedness, loss of consciousness or near loss of consciousness, bleeding from any source, fevers, chills, night sweats, inability to obtain or tolerate medications discussed with the patient. She acknowledged understanding. TIME SPENT: Greater than 45 minutes was spent on the discharge of the patient; greater than half was spent [id number] with the patient. [id number]/[facility] #: [id number] [facility] [place]
[2019-02-08] MEDS ORDERED: Warfarin TAB(*) 5 MG PO SCH (17:00)
[2019-02-08] MEDS ORDERED: Atorvastatin* 80 MG TAB PO SCH (21:00)
[2019-02-09] MEDS ORDERED: Warfarin TAB(*) 2.5 MG PO SCH (17:00)
== END 2019-02-08 13:40 | disposition home or self-care (01) | DRG 871 ==
LOC: ED 23:23 → MEDTELE 02-06 03:43
PROVIDERS: ADMIT Internal Medicine; ATTEND Internal Medicine
DX: A41.9 Sepsis, unspecified organism (principal); J18.9 Pneumonia, unspecified organism; I21.4 Non-ST elevation (NSTEMI) myocardial infarction; S06.0X9A Concussion with loss of consciousness of unspecified duration, initial encounter; I20.0 Unstable angina; Z68.41 Body mass index [BMI] 40.0-44.9, adult; I51.81 Takotsubo syndrome; W18.30XA Fall on same level, unspecified, initial encounter; Z99.81 Dependence on supplemental oxygen; Y92.009 Unspecified place in unspecified non-institutional (private) residence as the place of occurrence of the external cause; R74.8 Abnormal levels of other serum enzymes; K21.9 Gastro-esophageal reflux disease without esophagitis; F32.9 Major depressive disorder, single episode, unspecified; E66.9 Obesity, unspecified; G25.2 Other specified forms of tremor; M81.0 Age-related osteoporosis without current pathological fracture; R55 Syncope and collapse; E78.5 Hyperlipidemia, unspecified; R73.01 Impaired fasting glucose; N32.81 Overactive bladder; Z88.6 Allergy status to analgesic agent; Z88.4 Allergy status to anesthetic agent; Z88.0 Allergy status to penicillin; Z79.899 Other long term (current) drug therapy; Z79.01 Long term (current) use of anticoagulants; Z82.49 Family history of ischemic heart disease and other diseases of the circulatory system; Z87.891 Personal history of nicotine dependence; Z86.718 Personal history of other venous thrombosis and embolism; Z86.711 Personal history of pulmonary embolism
CPT/HCPCS: 36415; 70450; 71045; 80048; 80053; 80061; 81003; 81015; 82550; 83036; 83605; 83735; 83880; 84443; 84484; 85025; 85379; 85610; 86140; 87040; 87086; 93005; 93306; 93970; 99284; A9270-GY; C8929; G8978-GP-CK; G8979-GP-CJ; J0696

== ENCOUNTER 2019-02-13 17:52 | Emergency (ER) | payer MEDICARE, BC ==
[2019-02-13 19:10] LABS: Urine Appearance Cloudy; Urine Bacteria 1+ (Absent); Urine Bilirubin Negative (Negative); Urine Blood 2+ (Negative); Urine Color Yellow; Urine Glucose 1+(50 mg/dL) (Negative); Urine Ketones Negative (Negative); Urine Nitrite Negative (Negative); Urine Protein Negative (Negative); Urine Red Blood Cell 3+(>10/hpf) (Absent); Urine Specific Gravity 1.008 (1.010-1.030); Urine Squamous Epithelial Cell Present (Absent); Urine Urobilinogen Negative (Negative); Urine White Blood Cell 3+(>20/hpf) (Absent)
[2019-02-13 21:19] LABS: ABS Basophils 0.1 10^3/ul (0-0.2); ABS Eosinophils 0.1 10^3/ul (0-0.6); ABS Lymphocytes 2.4 10^3/ul (1.0-4.8); ABS Monocytes 0.9 10^3/ul (0-0.8); ABS Neutrophils 8.1 10^3/ul (1.5-7.7); Eosinophil % 1.2 %; Hematocrit 42 % (35-47); Hemoglobin 13.9 g/dL (12.0-16.0); Lymphocyte % 20.6 %; Mean Corpuscular HGB Conc 33 g/dL (31-36); Mean Corpuscular Hemoglobin 28 pg (27-31); Mean Corpuscular Volume 87 fL (80-97); Mean Platelet Volume 9.2 fL (7.4-10.4); Nucleated Red Blood Cells % 0.2; Platelet Count 232 10^3/uL (150-450); Red Blood Count 4.89 10^6 /uL (3.70-4.87); Red Cell Distribution Width 15 % (10.5-15); White Blood Count 11.6 10^3/uL (3.5-10.8)
[2019-02-13 21:36] LABS: BUN/Creatinine Ratio 15.6 (8-20); EGFR African American 72.4 (>60); EGFR Non-African American 59.8 (>60); Potassium 4.6 mmol/L (3.5-5.0)
[2019-02-13 22:53] VITALS: BP 155/61
--- NOTE | 2019-02-13 23:02 | ED ---
GI/ HPI - HPI Summary HPI Summary: Pt is an 83 y/o F presenting to the ED with a chief complaint of urinary sx onset today. She reports burning with urination, increased frequency, urgency, and chills. She denies fevers or back pain, and she did not have a catheter when she was hospitalized this past weekend. - History of Current Complaint Chief Complaint: EDUrogenitalProblems Time Seen by Provider: 02/13/19 22:56 Stated Complaint: MIGHT HAVE UTI PER PATIENT Hx Obtained From: Patient Onset/Duration: Started Hours Ago, Still Present Timing: Constant, Lasting Hours Severity: Moderate Current Severity: Moderate Pain Intensity: 0 Pain Characteristics: Burning Associated Signs and Symptoms: Positive: Chills, UTI Symptoms. Negative: Back Pain, Fever Aggravating Factor(s): Nothing Alleviating Factor(s): Nothing - Additional Pertinent History Primary Care Physician: DAKOTAH - Allergy/Home Medications Allergies/Adverse Reactions: Allergies Allergy/AdvReac Type Severity Reaction Status Date / Time ibuprofen Allergy Unknown Verified 02/13/19 18:17 Reaction Details Penicillins Allergy Unknown Verified 02/13/19 18:17 Reaction Details procaine [From Novocain] Allergy Unknown Verified 02/13/19 18:17 Reaction Details PMH/Surg Hx/FS Hx/Imm Hx Previously Healthy: Yes Endocrine/Hematology History: Reports: Hx Anticoagulant Therapy Denies: Hx Diabetes, Hx Thyroid Disease Cardiovascular History: Reports: Hx Hypercholesterolemia Denies: Hx Hypertension, Hx Peripheral Vascular Disease Respiratory History: Denies: Hx Lung Cancer GI History: Reports: Hx Diverticulosis, Hx Gastroesophageal Reflux Disease, Other GI Disorders - Hx GERD History: Denies: Hx Renal Disease Musculoskeletal History: Reports: Hx Arthritis, Hx Back Problems Sensory History: Reports: Hx Contacts or Glasses - GLASSES Denies: Hx Hearing Aid Opthamlomology History: Reports: Hx Contacts or Glasses - GLASSES Neurological History: Denies: Hx Headaches, Hx Seizures, Hx Transient Ischemic Attacks (TIA) Psychiatric History: Reports: Hx Anxiety, Hx Depression - Surgical History Surgery Procedure, Year, and Place: HYSTERECTOMY 2006. TONSILECTOMY A CHILD Hx Anesthesia Reactions: No - Immunization History Date of Tetanus Vaccine: Unk Date of Influenza Vaccine: Fall 2013 Infectious Disease History: No Infectious Disease History: Denies: Traveled Outside the [place] in Last 30 Days - Family History Known Family History: Negative: Diabetes - Social History Alcohol Use: None Hx Substance Use: No Substance Use Type: Reports: None Hx Tobacco Use: Yes Smoking Status (MU): Former Smoker Type: Cigarettes Review of Systems Positive: Chills. Negative: Fever Positive: burning, frequency, urgency Negative: Myalgia - back pain All Other Systems Reviewed And Are Negative: Yes Physical Exam - Summary Physical Exam Summary: Appearance: Well-appearing, Well-nourished, lying in bed comfortably Skin: Warm, dry, no obvious rash Eyes: sclera anicteric, no conjunctival pallor ENT: mucous membranes moist, pharynx appears normal Neck: Supple, nontender Respiratory: Clear to auscultation, no signs of respiratory distress Cardiovascular: Normal S1, S2. No murmurs. Normal distal pulses in tibial and radial bilaterally. Abdomen: Soft, nontender, normal active bowel sounds present. No flank or CVA tenderness. Musculoskeletal: Normal, Strength/ROM Intact Neurological: A&Ox3, awake and alert, mentation is normal, speech is fluent and appropriate Psychiatric: affect is normal, does not appear anxious or depressed Triage Information Reviewed: Yes Vital Signs On Initial Exam: Initial Vitals Temp Pulse Resp BP Pulse Ox 99.1 F 60 16 150/64 95 02/13/19 18:14 02/13/19 18:14 02/13/19 18:14 02/13/19 18:14 02/13/19 18:14 Vital Signs Reviewed: Yes Diagnostics - Vital Signs Vital Signs Temp Pulse Resp BP Pulse Ox 02/13/19 22:52 97.8 F 61 16 155/61 97 02/13/19 20:00 98.4 F 55 16 134/53 95 02/13/19 18:14 99.1 F 60 16 150/64 95 - Laboratory Lab Results: Lab Results 02/13/19 02/13/19 02/13/19 Range/Units 18:36 21:10 21:10 WBC 11.6 H (3.5-10.8) 10^3/uL RBC 4.89 H (3.70-4.87) 10^6 /uL Hgb 13.9 (12.0-16.0) g/dL Hct 42 (35-47) % MCV 87 (80-97) fL MCH 28 (27-31) pg MCHC 33 (31-36) g/dL RDW 15 (10.5-15) % Plt Count 232 (150-450) 10^3/uL MPV 9.2 (7.4-10.4) fL Neut % (Auto) 69.3 % Lymph % (Auto) 20.6 % Dukes % (Auto) 8.1 % Eos % (Auto) 1.2 % Baso % (Auto) 0.8 % Absolute Neuts (auto) 8.1 H (1.5-7.7) 10^3/ul Absolute Lymphs (auto) 2.4 (1.0-4.8) 10^3/ul Absolute Monos (auto) 0.9 H (0-0.8) 10^3/ul Absolute Eos (auto) 0.1 (0-0.6) 10^3/ul Absolute Basos (auto) 0.1 (0-0.2) 10^3/ul Absolute Nucleated RBC 0.0 10^3/ul Nucleated RBC % 0.2 Sodium 140 (135-145) mmol/L Potassium 4.6 (3.5-5.0) mmol/L Chloride 105 (101-111) mmol/L Carbon Dioxide 31 (22-32) mmol/L Anion Gap 4 (2-11) mmol/L BUN 14 (6-24) mg/dL Creatinine 0.90 (0.51-0.95) mg/dL Est GFR ( Amer) 72.4 (>60) Est GFR (Non-Af Amer) 59.8 (>60) BUN/Creatinine Ratio 15.6 (8-20) Glucose 106 H (70-100) mg/dL Calcium 9.0 (8.6-10.3) mg/dL Urine Color Yellow Urine Appearance Cloudy Urine pH 6.0 (5-9) Ur Specific Harmon 1.008 L (1.010-1.030) Urine Protein Negative (Negative) Urine Ketones Negative (Negative) Urine Blood 2+ A (Negative) Urine Nitrate Negative (Negative) Urine Bilirubin Negative (Negative) Urine Urobilinogen Negative (Negative) Ur Leukocyte Esterase 3+ A (Negative) Urine WBC (Auto) 3+(>20/hpf) A (Absent) Urine RBC (Auto) 3+(>10/hpf) A (Absent) Ur Squamous Epith Cells Present A (Absent) Urine Bacteria 1+ A (Absent) Urine Glucose 1+(50 mg/dl) A (Negative) Result Diagrams: 02/13/19 21:10 02/13/19 21:10 Lab Statement: Any lab studies that have been ordered have been reviewed, and results considered in the medical decision making process. GIGU Course/Dx - Course Course Of Treatment: Pt is an 83 y/o F presenting to the ED with a chief complaint of urinary sx onset today. She reports burning with urination, increased frequency, urgency, and chills. She denies fevers or back pain, and she did not have a catheter when she was hospitalized this past weekend. Pts hematology shows WBC of 11.6, RBC of 4.89, absolute neutrophils of 8.1 and absolute monocytes of 0.9. Pts urine shows 2+ blood, 3+ leukocyte esterase, 3+ WBC, 3+ RBC, present squamous epithelial cells, 1+ bacteria, and 1+ glucose. She will be discharged with a dx of UTI. She is stable and agreeable with this plan. - Diagnoses Provider Diagnoses: UTI (urinary tract infection) Discharge - Sign-Out/Discharge Documenting (check all that apply): Patient Departure Patient Received Moderate/Deep Sedation with Procedure: No - Discharge Plan Condition: Good Disposition: HOME Prescriptions: Nitrofurantoin Monohyd/M-Cryst [Macrobid 100 mg Capsule] 100 mg PO BID #14 cap Patient Education Materials: Urinary Tract Infection in Older Adults (ED) Referrals: Tavares Duffy DO [Primary Care Provider] - Additional Instructions: On Friday when you see your doctor the microbiology lab here should have some initial results on the urine culture, so your doctor can check that and if necessary adjust your coumadin if the antibiotic is interfering with that. - Billing Disposition and Condition Condition: GOOD Disposition: Home - Attestation Statements Document Initiated by Tristen: Yes Documenting Scribe: Niki Cardenas Provider For Whom Tristen is Documenting (Include Credential): Shakir Valencia MD. Scribe Attestation: Niki Fournier, renettaed for Shakir Valencia MD. on 02/17/19 at 0428. Scribe Documentation Reviewed: Yes Provider Attestation: The documentation as recorded by the scribeNiki accurately reflects the service I personally performed and the decisions made by Shakir landaverde MD. Status of Scribe Document: Viewed
[2019-02-13] MEDS ORDERED: Nitrofurantoin Macrocrystals* 100 MG CAP PO ONE (23:06)
== END 2019-02-14 | disposition home or self-care (01) ==
LOC: ED 17:52
DX: N39.0 Urinary tract infection, site not specified (principal); Z79.01 Long term (current) use of anticoagulants; E78.00 Pure hypercholesterolemia, unspecified; K21.9 Gastro-esophageal reflux disease without esophagitis; I73.9 Peripheral vascular disease, unspecified; Z87.891 Personal history of nicotine dependence
CPT/HCPCS: 36415; 80048; 81003; 81015; 85025; 87086; 99282; A9270-GY